=== PATIENT | female | born 1980 ===

== ENCOUNTER 2022-12-19 17:21 | Emergency (ER) | payer OTHER, SELFPAY ==
--- NOTE | ~2022-12-19 | XR_ITS ---
EXAMINATION: XR CHEST CLINICAL INFORMATION: Shortness of breath COMPARISON: None available. TECHNIQUE: 2 views of the chest were obtained. FINDINGS: No significant abnormality is noted involving the heart, lungs, mediastinum, bony thorax or soft tissues. Old left rib fractures. XR/XR chest 2V IMPRESSION: No evidence for acute disease in the chest.
[2022-12-19 17:48] VITALS: BP 139/84; PULSE 105; RESP 18; TEMP 36.7; O2SAT 93; BMI 24.2
--- NOTE | 2022-12-19 17:48 | ED.ASTHMA ---
HPI - Asthma General Chief Complaint: Asthma Stated Complaint: asthma Time Seen by Provider: 12/19/22 20:52 Source: patient Mode of arrival: ambulatory Limitations: no limitations History of Present Illness HPI Narrative: Patient is a 42-year-old female who presents emergency department reporting that she has been having an asthma attack. She reports exacerbation of her symptoms over the past 5 days. She states that she has been walking in the heat to bring her son to school walking uphill which is been intolerant for her. She expresses shortness of breath, tightness in her chest and a productive cough. She has been using her albuterol inhaler nebulized lower below minimal improvement. She has been feeling overall fatigued in with a lack of appetite. She reports sick contact to a friend who tested positive for influenza. She denies fevers, nausea, vomiting, abdominal pain, genitourinary symptoms. Related Data Previous Rx's Medication Instructions Recorded azithromycin 250 mg tablet See Rx Instructions PO .COMPLEX #6 12/19/22 tabs prednisone 20 mg tablet 40 mg PO DAILY 5 days #10 tabs 12/19/22 Allergies Allergy/AdvReac Type Severity Reaction Status Date / Time No Known Allergies Allergy Verified 12/19/22 17:47 [No Known Allergies*] Review of Systems Review of Systems: Constitutional : No Fever, No Chills ENT/Mouth : No Hoarseness, No sore throat, No Rhinorrhea Eyes: No Redness, No Discharge, No Vision Changes Cardiovascular : No Chest Pain, positive SOB, positive Dyspnea on Exertion, No Edema Respiratory : positive Cough, No Sputum, positive Wheezing, Gastrointestinal : No Nausea, No Vomiting, No Diarrhea, No abdominal Pain Genitourinary : No Dysuria, No Hematuria Musculoskeletal : No joint pain, No Myalgias Skin : No rash Neuro : No Weakness, No Numbness, No Headache Psych : No anxiety, depression Heme/Lymph: No Bruising, No Bleeding Endocrine : No Polyuria, No Polydipsia Yes all other systems are reviewed and are negative [facility] Past Medical History Attestation statement: The following information was validated with the patient. Source: old records reviewed Social History Social History Smoked in Last 30 Days: No Use of substances other than those prescribed or required for medical reasons: No Advance Directives: No Advance Directives Information Provided: No Physical Exam Vital Signs: Vital Signs: Last Vital Signs Temp 98.1 F 12/19/22 17:48 Pulse 105 H 12/19/22 17:48 Resp 18 12/19/22 22:00 BP 139/84 12/19/22 17:48 Pulse Ox 93 12/19/22 17:48 O2 Del Method Room Air 12/19/22 17:48 BMI result Body Mass Index 24.2 Appearance: Alert.?Oriented to person, place and time. No acute distress.?Normal affect. Eyes: Pupils equal, round and reactive to light.? ENT: Pharynx normal.?? Neck: Normal inspection.? Neck supple.?? CVS: Heart sounds normal. Normal heart rate and rhythm.? Pulses normal.?? Respiratory: No respiratory distress.? Lung sounds with rhonchi bilaterally, mild expiratory wheezing in the upper lobes. no retractions. Speaking clear full sentences Abdomen: Soft and non-tender. Normoactive bowel sounds. Skin: Skin warm and dry.? Normal skin color.? Extremities: No lower extremity edema.? No calf ttp? Neuro: Moves all extremities spontaneously. Sensation intact bilaterally. No focal neuro deficits. Ambulates with normal steady gait. Course Course Course Narrative: This is an RME: Additional HPI, ROS, PE not included below will be deferred to primary provider. This is a [id number]-female, with a history of asthma, presenting to the ER with complaints of shortness of breath, chest tightness, productive cough with green/brown colored sputum. No fevers. +diarrhea, no appetitie, feeling weak. Using nebulizer and inhaler, used nebulizer 3x today. Plan: Viral swabs, labs, CXR Medical Decision Making Medical Decision Making MDM Narrative: Patient is a 42-year-old female past medical history of asthma who presents emergency department for evaluation of shortness of breath concern for asthma exacerbation. She has had a recent ill contact, although her testing obtained prior to my evaluation for influenza RSV and COVID-19 while negative. Her chest x-ray does not show any evidence of pneumonia, or pneumothorax. She has had minimal relief with her albuterol inhaler prescribed by her primary care provider. She is in no apparent respiratory distress. She declines to have serum labs drawn which were ordered by RMA provider. She is requesting medication management for exacerbation of her asthma. I have a low suspicion for ACS, I did discuss with patient potential for pulmonary embolism as she is mildly tachycardic, with low normal room air O2 saturation, she has no additional risk factors; personal history of malignancy/DVT/PE, coagulation disorders, use of OCP, recent lower extremity redness/swelling/pain, recent surgery or prolonged immobilization. Discussed plan of care for discharge, patient was offered to receive 1st dose of steroids in the emergency department however she declines, prescription was sent to the pharmacy for prednisone as well as azithromycin. We discussed worrisome signs and symptoms that would warrant re-evaluation in the emergency department, advised outpatient follow-up with her primary care provider within 1-3 days. Differential Diagnosis Differential Diagnoses: The differential diagnosis associated with the presentation includes (As noted above) Admission/Observation Consideration of admission/observation: Escalation of care including admission/observation considered (I considered admission for shortness of breath, see narrative above for further detail) Lab Data MDM Lab Attestation statement: I reviewed the patient's lab results. Labs: Lab Results 12/19/22 Range/Units 19:36 Influenza Type A (PCR) NEGATIVE (Negative) Influenza Type B (PCR) NEGATIVE (Negative) RSV RNA Qual (PCR) NEGATIVE (Negative) SARS-CoV-2 RNA (RT-PCR) NEGATIVE (Negative) Independent Interpretation I performed an independent interpretation of an: Plain X-Ray (I personally interpreted chest x-ray and agree with radiologist impression, no evidence of pneumothorax or pneumonia) Radiology Impression Discussion of test interpretation with radiology: I have reviewed the radiologist's reading. Radiologist Impression: XR/XR chest 2V IMPRESSION: No evidence for acute disease in the chest. Tests considered The following testing was considered but not selected: See narrative above for further detail Prescription Management I considered prescription management with: Antibiotic Discharge Plan Discharge Clinical Impression: Asthma with acute exacerbation Patient Disposition: Home, Self-Care Instructions: Asthma (ED) Prescriptions: New prednisone 20 mg tablet 40 mg PO DAILY 5 Days Qty: 10 0RF azithromycin 250 mg tablet See Rx Instructions .ROUTE .COMPLEX Qty: 6 0RF Rx Instructions: For 250 mg dose pack: take 500 mg today (day 1), then 250 mg for 4 days (days 2-5) Referrals: Physician,Unknown J [Primary Care Provider] - Stand Alone Forms: Work/School Release Interventions: ED Discharge Assessment Last Done: 12/19/22 22:04 Discharge Date/Time: 12/19/22 22:04
--- NOTE | 2022-12-19 19:36 | MHC.EDTECH ---
PT REFUSED BLOOD WORK ,DID ALLOW FOR SWAB TO BE TAKEN ,PIT PROVIDER AND PUTTY WORKER AWARE .
--- NOTE | 2022-12-19 20:30 | MHC.EDTECH ---
Patient refused blood draw, stating she only wanted a swab and to be treated for her asthma. Was very upset to be sent back to waiting room after swab was collected, patient was told about the process of drawing and obtaining specimens while she waited.
[2022-12-19 20:36] LABS: Influenza A PCR NEGATIVE (Negative); Influenza B PCR NEGATIVE (Negative); Resp Syncy Virus RNA Qual PCR NEGATIVE (Negative); SARS COV2 PCR INHOUSE NEGATIVE (Negative)
--- OUTSIDE RECORDS SUMMARY | 2022-12-19 20:54 | XMS_ITS | Continuity of Care Document ---
Author Name Unknown Organization [facility] Address [address] [place] [phone]- Care Team Providers Care Garage Attendant Name Role Phone Passer Deepika ORELLANA [place] Care Phys[place] [facility] [place] - 07/22/[address] [address]- Attending Physician: Not on Staff, Attending MD Allergies, Adverse Reactions, Alerts No Known Allergies Immunizations Given and Recorded Vaccine Date Status Refusal Reason tetanus/diphtheria/pertussis, acel(Tdap) 05/23/21 Given tetanus/diphtheria/pertussis, acel(Tdap) 12/28/14 Given Medications aspirin 81 mg oral delayed release tablet See Instructions, 2 tablet By Mouth Daily at bedtime, # 60 tablet, Refills 8, Tot. Refills 8, Maintenance, 02/07/21 10:30:00 EDT, Instructions Replace Required Details, Route to Pharmacy Electronically, [facility]/pharmacy #[id number], Partial fill upon patient re... Start Date: 02/07/21 Status: Ordered CVS DOXYLAMINE 25 MG TAB CVS DOXYLAMINE 25 MG TAB, 1, tablet, By Mouth, Daily at bedtime, # 30 tablet, 1 Refills, 145, cm, 05/26/21 11:48:00 EST, Height Start Date: 06/19/21 Status: Ordered Ensure Pluse Ensure Pluse, See Instructions, # 90 each, Refills 1, Tot. Refills 1, Maintenance, Three per day., 12/31/17 11:43:35 EDT, weight loss, Compound Start Date: 12/31/17 Status: Ordered famotidine 10 mg oral tablet 1 tablet = 10 mg, By Mouth, 2 times a day, PRN Dyspepsia, # 60 tablet, 1 Refills, Maintenance, 06/06/21 11:41:00 EST, Tablet, [facility]/pharmacy #[id number], Partial fill upon patient request if the prescriptionis for a schedule II opioid drug., 145, cm, ... Start Date: 06/06/21 Status: Ordered Multivitamins with Folic Acid 1 mg oral tablet 1 tablet, By Mouth, Daily, # 90 tablet, 2 Refills, Maintenance, 01/02/21 11:05:00 EDT, [facility]/pharmacy#[id number], Partial fill upon patient request if the prescription is for a schedule II opioid drug., 1 tablet By Mouth Daily, 145, cm, 01/02/21 10:26:00 EDT... Start Date: 01/02/21 Status: Ordered ProAir HFA 90 mcg/inh inhalation aerosol with adapter 1-2 PUFFS, Inhalation, Every 6 hours, PRN, # 8.5 each, Refills 0, Route to Pharmacy Electronically,[id number], [id number], 145, cm, 05/26/21 11:48:00 EST, Height Start Date: 06/19/21 Status: Ordered Unisom 25 mg oral tablet See Instructions, take 1 tablet by mouth at bedtime, # 30 tablet, 1 Refills, Maintenance, 04/19/21 12:03:00 EST, [facility]/pharmacy #[id number], Partial fill upon patient request if the prescription is for a schedule II opioid drug., 145, cm, 03/28/21 12:21:00 ES... Start Date: 04/19/21 Status: Ordered Problem List Condition Effective Dates Status Health Status Inform ant Asthma(Confirmed) Active Chronic headaches(Confirmed) Active GERD (gastroesophageal reflu x disease)(Confirmed) Active History of varicella vaccination(Confirmed) Active Obese class I(Confirmed) Active Post traumatic stress disord er (PTSD)(Confirmed) Active Social History Social History Type Response Smoking Status Former smoker, quit more than 30 days ago entered on: 04/11/20 Sex Female
--- OUTSIDE RECORDS SUMMARY | 2022-12-19 20:54 | XMS_ITS | Continuity of Care Document ---
Author Name Unknown Organization [facility] Address [address] [place] [address]- Care Team Providers Care Water And Gas Helper Name Role Phone Passer Deepika ORELLANA Primary Care Phys[place] [facility] [place] - 12/01/[address] [address]- Attending Physician: Not on Staff, Attending MD Referring Physician: Roseline Barker MD Allergies, Adverse Reactions, Alerts No Known Allergies Immunizations Given and Recorded Vaccine Date Status Refusal Reason tetanus/diphtheria/pertussis, acel(Tdap) 05/23/21 Given tetanus/diphtheria/pertussis, acel(Tdap) 12/28/14 Given Medications acetaminophen 325 mg oral tablet 650 mg, By Mouth, Every 4 hours, PRN, (1-3), may give 325mg per patient preference and re-dose [id number] within 4 hours, if needed. Patient should only receive a total of 650mg of Acetaminophen every 4 hours., # 50 tablet, Refills 0, Tot. Refills 0... Start Date: 08/11/21 Status: Ordered [facility] DOXYLAMINE 25 MG TAB [...] loss, Compound Start Date: 12/31/17 Status: Ordered Heartburn Relief 10 mg oral tablet 1 tablet, By Mouth, 2 times a day, PRN NEEDED FOR DYSPEPSIA, # 60 tablet, 0 Refills, [id number], 145, cm, 08/11/21 8:46:00 EDT, Height, 69.5, kg, 08/09/21 8:30:00 EDT, Dry Weight Start Date: 08/22/21 Status: Ordered ibuprofen 800 mg oral tablet 800 mg, 1, tablet, By Mouth, Every 8 hours, PRN, (4-6), may give 400mg per patient preference and re-dose with 400mg within 8 hours if needed. Patient should only receive a total of 800mg of Ibuprofen every 8 hours., # 50 tablet, Refills 0, Tot. Ref... Start Date: 08/11/21 Status: Ordered ondansetron 4 mg oral tablet, disintegrating = 4 mg, By Mouth, Every 6 hours, PRN Nausea & Vomiting, # 20 tablet, 0 Refills, Maintenance, 08/11/21 5:13:00 EDT, Tablet, [facility]/pharmacy #[id number], Partial fill upon patient request if the prescription is for a schedule II opioid drug., 145, cm, 08/10/21 1... Start Date: 08/11/21 Status: Ordered Multivitamins with Folic Acid 1 mg oral tablet 1 tablet, By Mouth, Daily, # 90 tablet, 2 Refills, Maintenance, 01/02/21 11:05:00 EDT, [facility]/pharmacy#[id number], Partial fill upon patient request if the prescription is for a schedule II opioid drug., 1 tablet By Mouth Daily, 145, cm, 01/02/21 10:26:00 EDT... Start Date: 01/02/21 Status: Ordered ProAir HFA 90 mcg/inh inhalation aerosol with adapter 1-2 PUFFS, Inhalation, Every 6 hours, PRN, # 8.5 each, Refills 0, Route to Pharmacy Electronically,[id number], [id number], 145, cm, 05/26/21 11:48:00 EST, Height Start Date: 06/19/21 Status: Ordered Unisom 25 mg oral tablet See Instructions, take 1 tablet by mouth at bedtime, # 30 tablet, 1 Refills, Maintenance, 12/29/21 12:03:00 JAUN, [facility]/pharmacy #[id number], Partial fill upon patient request if the [...]
--- OUTSIDE RECORDS SUMMARY | 2022-12-19 20:54 | XMS_ITS | Continuity of Care Document ---
Author Name Unknown Organization [facility] Address [address] [place] [phone]- Care Team Providers Care Glass Forming Crew Member Name Role Phone Passer Deepika ORELLANA Primary Care Phys[place] [facility] [place] 09/19/22 [facility] [address] [address]- Attending Physician: Sissy Loving Admitting Physician: AdmSissy edmondson Referring Physician: Admtr ArTeresa Allergies, Adverse Reactions, Alerts No Known Allergies Immunizations Given and Recorded Vaccine Date Status Refusal Reason tetanus/diphtheria/pertussis, acel(Tdap) 05/23/21 Given tetanus/diphtheria/pertussis, acel(Tdap) 12/28/14 Given Measles/Mumps/Rubella Virus Vaccine 03/27/17 Recor ded hepatitis B pediatric vaccine 03/27/17 Recorded Medications acetaminophen 325 mg oral tablet 650 mg, By Mouth, Every 4 hours, PRN, (1-3), may give 325mg per patient preference and re-dose [id number] within 4 hours, if needed. Patient should [...] loss, Compound Start Date: 12/31/17 Status: Ordered escitalopram 10 mg oral tablet 1 tablet = 10 mg, By Mouth, Daily, for anxiety and depression, # 30 tablet, 3 Refills, Maintenance,03/21/22 11:20:00 EST, Tablet, [facility]/pharmacy #[id number], Partial fill upon patient request if the prescription is for a schedule II opioid drug., 145, cm, 11... Start Date: 03/21/22 Status: Ordered Heartburn Relief 10 mg oral tablet 1 tablet, By Mouth, 2 times a day, PRN NEEDED FOR DYSPEPSIA, # 60 tablet, 0 Refills, [facility] STORE [id number], 145, cm, 08/11/21 8:46:00 EDT, Height, 69.5, kg, 08/09/21 8:30:00 EDT, Dry Weight Start Date: 08/22/21 Status: Ordered hydrOXYzine hydrochloride 25 mg oral tablet 1 tablet = 25 mg, By Mouth, Every 6 hours, PRN for anxiety, # 60 tablet, 2 Refills, Maintenance, 03/21/22 11:20:00 EST, Tablet, [facility]/pharmacy #[id number], Partial fill upon patient request if the prescription is for a schedule II opioid drug., 145, cm, 03/21... Start Date: 03/21/22 Status: Ordered ibuprofen 800 mg oral tablet 800 mg, 1, tablet, By Mouth, Every 8 hours, PRN, with food not to exceed 3200 mg/day, # 50 tablet, Refills 3, Tot. Refills 3, Maintenance, Headache, 03/21/22 11:19:00 EST, Route to Pharmacy Electronically, [facility]/pharmacy #[id number], Partial fill upon patien... Start Date: 03/21/22 Status: Ordered ondansetron 4 mg oral tablet, disintegrating = 4 mg, By Mouth, Every 6 hours, PRN Nausea & Vomiting, # 20 tablet, 0 Refills, Maintenance, 08/11/21 5:13:00 EDT, Tablet, [facility]/pharmacy #[id number], Partial fill upon patient request if the prescription is for a schedule II opioid drug., 145, cm, 08/10/21 1... Start Date: 08/11/21 Status: Ordered permethrin 1% topical lotion 1 application, Topically, Once, Apply to freshly washed, slightly dried hair x 10 minutes, then rinse. Repeat in 7 days, # 240 mL, 1 Refills, Soft Stop, 05/08/22 13:38:00 EST, Lotion, [facility]/pharmacy #[id number], Partial fill upon patient request if the prescr... Start Date: 05/08/22 Status: Ordered Multivitamins with Folic Acid 1 mg oral tablet 1 tablet, By Mouth, Daily, # 90 tablet, 2 Refills, Maintenance, 01/02/21 11:05:00 EDT, [facility]/pharmacy#[id number], Partial fill upon patient request if the prescription is for a schedule II opioid drug., 1 tablet By Mouth Daily, 145, cm, 01/02/21 10:26:00 EDT... Start Date: 01/02/21 Status: Ordered ProAir HFA 90 mcg/inh inhalation aerosol with adapter 1-2 PUFFS, Inhalation, Every 6 hours, PRN, # 8.5 each, Refills 0, Route to Pharmacy Electronically,[id number], [facility] STORE [id number], 145, cm, 05/26/21 11:48:00 EST, Height Start Date: 06/19/21 Status: Ordered Unisom 25 mg oral tablet See Instructions, take 1 tablet by mouth at bedtime, # 30 tablet, 1 Refills, Maintenance, 04/19/21 12:03:00 EST, [facility]/pharmacy #[id number], Partial fill upon patient request if the prescription is for a schedule II opioid drug., 145, cm, 03/28/21 12:21:00 ES... Start Date: 04/19/21 Status: Ordered Problem List Condition Confirmation Course Effective Dates Status Health St [facility] Informant Asthma Confirmed Active Chronic headaches Confirmed Active GERD (gastroesophageal reflux disease) Confirmed Active History of varicella vaccination Confirmed Active Anxiety with depression Confirmed Active Post traumatic stress disorder (PTSD) Confirmed Active Social History Social History Type Response Smoking Status Former smoker, quit more than 30 days ago entered on: 04/11/20 Sex Patient Care team information Care Team Personnel Name: Deepika Ngo Position: S PCO Associate Professional Member Role: PCP Address: Address: [address] [place] [address]- Care Team Related Persons Name: DENISE TINAJERO Address: [address] [place] [address] Name: JIM LEE Address: [id number] Address: [address] [place] [address] Name: JIM LEE Address: [address] [place] [address]
--- OUTSIDE RECORDS SUMMARY | 2022-12-19 20:54 | XMS_ITS | Continuity of Care Document ---
Author Name Unknown Organization [facility] Address [address] [place] [address]- Care Team Providers Care Business Education Instructor Name Role Phone Passer Deepika ORELLANA Primary Care Physician En[place] [facility] [place](s): 06/16/20 - 07/16/20 [facility] [address] [place] [address]- Attending Physician: AdmSissy edmondson Admitting Physician: Admtr, Ar8 Referring Physician: Admtr, Ar8 Allergies, Adverse Reactions, Alerts Substance Reaction Severity Status NKA Active Immunizations Given and Recorded Vaccine Date Status Refusal Reason tetanus/diphtheria/pertussis, acel(Tdap) 12/28/14 Given Medications albuterol 90 mcg/inh inhalation powder 1 puffs, Inhalation, Every 4 hours, PRN as needed, for asthma, # 1 each, 2 Refills, Maintenance, 05/31/20 11:25:00 EST, Powder, [facility]/pharmacy #[id number], Duplicate rx-Original rx sent 08/25/19. Remaining refills sent., 1 puffs Inhalation Every 4 hours,PRN:as... Start Date: 05/31/20 Status: Ordered Samantha 0.35 mg oral tablet 1 tablet = 0.35 mg, By Mouth, Daily, # 90 tablet, 11 Refills, Maintenance, 07/14/19 13:49:00 EDT, Tablet, [id number], 146.7, cm, 06/02/18 10:38:00 EST, Height Start Date: 07/14/19 Status: Ordered Ensure Pluse Ensure Pluse, See Instructions, # 90 each, Refills 1, Tot. Refills 1, Maintenance, Three per day., 12/31/17 11:43:35 EDT, weight loss, Compound Start Date: 12/31/17 Status: Ordered ibuprofen 800 mg oral tablet 1, tablet, By Mouth, 3 times a day, INSTR:FOR TOE PAIN AND HEADACHE, # 90 tablet, Refills 3, Tot. Refills 3, Maintenance, 08/25/19 10:32:00 EDT, Route to Pharmacy Electronically, [facility]/pharmacy #[id number], 146.7, cm, 06/02/18 10:38:00 EST, Height Start Date: 08/25/19 Status: Ordered mirtazapine 30 mg oral tablet 1 tablet = 30 mg, By Mouth, Daily at bedtime, for sleep, # 30 tablet, 11 Refills, Maintenance, 04/11/20 13:34:00 EST, Tablet, [facility]/pharmacy #[id number], 146.7, cm, 04/11/20 12:42:00 EST, Height Start Date: 04/11/20 Status: Ordered Protonix 20 mg oral delayed release tablet 1 tablet = 20 mg, By Mouth, Daily at bedtime, for acid, # 30 tablet, 6 Refills, Maintenance, 01/20/20 9:05:00 EDT, CR Tablet, 146.7, cm, 06/02/18 10:38:00 EST, Height Start Date: 01/20/20 Status: Ordered Problem List Condition Effective Dates Status Health Status Inform ant Chronic headaches(Confirmed) Active Hyperemesis(Confirmed) 1 Active 1increased wgt loss since +pt Social History Social History Type Response Smoking Status Former smoker, quit more than 30 days ago entered on: 04/11/20 Sex
--- OUTSIDE RECORDS SUMMARY | 2022-12-19 20:54 | XMS_ITS | Continuity of Care Document ---
Author Name Unknown Organization [facility] Address [address] [facility], [address], [address] [place] [address]- Care Team Providers Care Digital Photo Printer Name Role Phone Deepika Ngo Primary Care Physician Encounter [facility] [place] Date(s): 08/31/19 - 09/07/19 [facility] [address], [address], [address] [place] [id number]- [facility] Attending Physician: Floyd Drake NP Referring Physician: Deepika Ngo Allergies, Adverse Reactions, Alerts Substance Reaction Severity Status NKA Active Immunizations Given and Recorded Vaccine Date Status Refusal Reason tetanus/diphtheria/pertussis, acel(Tdap) 12/28/14 Given Medications albuterol 90 mcg/inh inhalation powder 1 puffs, Inhalation, Every 4 hours, PRN as needed, for asthma, # 1 each, 11 Refills, Maintenance, 08/25/19 10:32:00 EDT, Powder, [id number], 1 puffs Inhalation Every 4 hours,PRN:as needed,Instr:for asthma, 146.7, cm, 06/02/18 10:38:00 EST, Height Start Date: 08/25/19 Status: Ordered Samantha 0.35 mg oral tablet [...] 08/25/19 10:32:00 EDT, Route to Pharmacy Electronically, [facility]/pharmacy #[id number], 146.7, cm, 06/02/18 10:38:00 EST, Height Start Date: 08/25/19 Status: Ordered Protonix 20 mg oral delayed release tablet 1 tablet = 20 mg, By Mouth, Daily at bedtime, for acid, # 30 tablet, 0 Refills, Maintenance, 08/25/19 10:32:00 EDT, CR Tablet, 146.7, cm, 06/02/18 10:38:00 EST, Height Start Date: 08/25/19 Status: Ordered Problem List Condition Effective Dates Status Health Status Inform ant Chronic headaches(Confirmed) Active Hyperemesis(Confirmed) 1 Active 1increased wgt loss since +pt Social History Social History Type Response Smoking Status Former smoker; Type: Cigarettes; Tobacco use times per day: 2-3 PER DAY; Started at age: 14; Stopped at age: 33; entered on: 12/31/17 Sex
--- OUTSIDE RECORDS SUMMARY | 2022-12-19 20:54 | XMS_ITS | Continuity of Care Document ---
Author Name Unknown Organization [facility] Address [address] [place] [address]- Care Team Providers Care Mental Health Consultant Name Role Phone Passer Deepika ORELLANA Primary Care Physician Encounter [facility] [place] Date(s): 08/25/19 - 09/24/19 [facility] [address] [place] [address]- [place] States Attending Physician: Admtr, [id number] Admitting Physician: [id number] Referring Physician: Admtr, Ar8 Allergies, Adverse Reactions, [...] 08/25/19 10:32:00 EDT, Route to Pharmacy Electronically, [facility]/pharmacy #[id number], 146.7, cm, 06/02/18 10:38:00 EST, Height Start Date: 08/25/19 Status: Ordered Protonix 20 mg oral delayed release tablet 1 tablet = 20 mg, By Mouth, Daily at bedtime, for acid, # 30 tablet, 2 Refills, Maintenance, 09/17/19 15:34:00 EDT, CR Tablet, 146.7, cm, 06/02/18 10:38:00 EST, Height Start Date: 09/17/19 Status: Ordered Problem List Condition Effective Dates Status Health Status Inform ant Chronic headaches(Confirmed) Active Hyperemesis(Confirmed) 1 Active 1increased wgt loss since +pt Social History Social History Type Response Smoking Status Former smoker; Type: Cigarettes; Tobacco use times per day: 2-3 PER DAY; Started at age: 14; Stopped at age: 33; entered on: 12/31/17 Sex
--- OUTSIDE RECORDS SUMMARY | 2022-12-19 20:54 | XMS_ITS | Continuity of Care Document ---
Author Name Unknown Organization [facility] Address [address] [place] [address]- Care Team Providers Care Operations Controller Name Role Phone Passer Deepika ORELLANA Primary Care Physician Encounter [facility] [place] Date(s): 02/09/21 - 03/11/[address] [address] Allergies, Adverse Reactions, Alerts Substance Reaction Severity Status NKA Active Immunizations Given and Recorded Vaccine Date Status Refusal Reason tetanus/diphtheria/pertussis, acel(Tdap) 12/28/14 Given Medications albuterol 90 mcg/inh inhalation powder 1 puffs, Inhalation, Every 4 hours, PRN as needed, for asthma, # 1 each, 2 Refills, Maintenance, 05/31/20 11:25:00 EST, Powder, [facility]/pharmacy #[id number], Duplicate rx-Original rx sent 08/25/19. Remaining refills sent., 1 puffs Inhalation Every 4 hours,PRN:as... Start Date: 05/31/20 Status: Ordered aspirin 81 mg oral delayed release tablet See Instructions, 2 tablet By Mouth Daily at bedtime, # 60 tablet, Refills 8, Tot. Refills 8, Maintenance, 02/07/21 10:30:00 EDT, Instructions Replace Required Details, Route to Pharmacy Electronically, [id number], Partial fill upon patient re... Start Date: 02/07/21 Status: Ordered Ensure Pluse Ensure Pluse, See Instructions, # 90 each, Refills 1, Tot. Refills 1, Maintenance, Three per day., 12/31/17 11:43:35 EDT, weight loss, Compound Start Date: 12/31/17 Status: Ordered Multivitamins with Folic Acid 1 mg oral tablet 1 tablet, By Mouth, Daily, # 90 tablet, 2 Refills, Maintenance, 01/02/21 11:05:00 EDT, [facility]/pharmacy#[id number], Partial fill upon patient request if the prescription is for a schedule II opioid drug., 1 tablet By Mouth Daily, 145, cm, 01/02/21 10:26:00 EDT... Start Date: 01/02/21 Status: Ordered Unisom 25 mg oral tablet 1 tablet = 25 mg, By Mouth, Daily at bedtime, PRN Sleep, 15 to 30 minutes before bed May take 1/2 tab if whole tab causes morning drowiness, # 30 tablet, 1 Refills, Acute 04/12/21 13:32:00 EST, 01/10/21 13:32:00 EDT, [facility]/pharmacy #[id number], Partial fill... Start Date: 01/10/21 Stop Date: 04/12/21 Status: Ordered Problem List Condition Effective Dates Status Health Status Inform ant Asthma(Confirmed) Active Chronic headaches(Confirmed) Active History of varicella vaccination(Confirmed) Active Post traumatic stress disord er (PTSD)(Confirmed) Active Social History Social History Type Response Smoking Status Former smoker, quit more than 30 days ago entered on: 04/11/20 Sex
--- OUTSIDE RECORDS SUMMARY | 2022-12-19 20:54 | XMS_ITS | Continuity of Care Document ---
Author Name Unknown Organization [facility] Address [address] [place] [address]- Care Team Providers Care I O Psychologist Name Role Phone Passer Deepika ORELLANA Primary Care Physician Encounter [facility] [place] Date(s): 04/27/22 - 05/27/22 [facility]/[address] [address]- [place] Allergies, Adverse Reactions, Alerts No Known Allergies Immunizations Given and Recorded Vaccine Date Status Refusal Reason tetanus/diphtheria/pertussis, acel(Tdap) 05/23/21 Given tetanus/diphtheria/pertussis, acel(Tdap) 12/28/14 Given Measles/Mumps/Rubella Virus Vaccine 03/27/17 Recor ded hepatitis B pediatric vaccine 03/27/17 Recorded Medications acetaminophen 325 mg oral tablet 650 mg, By Mouth, Every 4 hours, PRN, (1-3), may give 325mg per patient preference and re-dose [id number] within 4 hours, if needed. Patient should [...] tablet, 3 Refills, Maintenance,03/21/22 11:20:00 EST, Tablet, [facility]/pharmacy #[id number], Partial fill upon patient request if the prescription is for a schedule II opioid drug., 145, cm, 11... Start Date: 03/21/22 Status: Ordered Heartburn Relief 10 mg oral tablet 1 tablet, By Mouth, 2 times a day, PRN NEEDED FOR DYSPEPSIA, # 60 tablet, 0 Refills, [facility] STORE [id number], 145, cm, 08/11/21 8:46:00 EDT, Height, 69.5, kg, 08/09/21 8:30:00 EDT, Dry Weight Start Date: 08/22/21 Status: Ordered hydrOXYzine hydrochloride 25 mg oral tablet 1 tablet = 25 mg, By Mouth, Every 6 hours, PRN for anxiety, # 60 tablet, 2 Refills, Maintenance, 03/21/22 11:20:00 EST, Tablet, [facility]/pharmacy #[id number], Partial fill upon patient request [...] 03/21/22 11:19:00 EST, Route to Pharmacy Electronically, [facility]/pharmacy #[id number], Partial fill upon patien... Start Date: 03/21/22 Status: Ordered ondansetron 4 mg oral tablet, disintegrating = 4 mg, By Mouth, Every 6 hours, PRN Nausea & Vomiting, # 20 tablet, 0 Refills, Maintenance, 08/11/21 5:13:00 EDT, Tablet, [id number], Partial fill upon patient request if the prescription is for a schedule II opioid drug., 145, cm, 08/10/21 1... Start Date: 08/11/21 Status: Ordered permethrin 1% topical lotion 1 application, Topically, Once, Apply to freshly washed, slightly dried hair x 10 minutes, then rinse. Repeat in 7 days, # 240 mL, 1 Refills, Soft Stop, 05/08/22 13:38:00 EST, Lotion, [id number], Partial fill upon patient request if the prescr... Start Date: 05/08/22 Status: Ordered Multivitamins with Folic Acid 1 mg oral tablet 1 tablet, By Mouth, Daily, # 90 tablet, 2 Refills, Maintenance, 01/02/21 11:05:00 EDT, [id number], Partial fill upon patient request if the prescription is for a schedule II opioid drug., 1 tablet By Mouth Daily, 145, cm, 01/02/21 10:26:00 EDT... Start Date: 01/02/21 Status: Ordered ProAir HFA 90 mcg/inh inhalation aerosol with adapter 1-2 PUFFS, Inhalation, Every 6 hours, PRN, # 8.5 each, Refills 0, Route to Pharmacy Electronically,[id number], [facility] STORE [id number], 145, cm, 05/26/21 11:48:00 EST, Height Start Date: 06/19/21 Status: Ordered Unisom 25 mg oral tablet See Instructions, take 1 tablet by mouth at bedtime, # 30 tablet, 1 Refills, Maintenance, 04/19/21 12:03:00 EST, [facility]/pharmacy #[id number], Partial fill upon patient request [...] Associate Professional Member Role: PCP Address: Address: [address] [place] [address]- Care Team Related Persons Name: DENISE TINAJERO Address: home [address] [place] [address] Name: JIM LEE Address: [address] [address] Name: LEEJIM Address: [id number] Address: [place] [id number]
--- OUTSIDE RECORDS SUMMARY | 2022-12-19 20:54 | XMS_ITS | Continuity of Care Document ---
Author Name Unknown Organization [facility] Address [address] [place] [address]- Care Team Providers Care Airfield Manager Name Role Phone Passer Deepika ORELLANA Primary Care Physician Encounter [facility] Date(s): 10/13/20 - 11/12/20 [facility] [address] [address]- Attending Physician: Sissy Loving Admitting Physician: AdmtrSissy Referring Physician: Admtr, Alec8 Allergies, Adverse Reactions, Alerts Substance Reaction Severity Status NKA Active Immunizations Given and Recorded Vaccine Date Status Refusal Reason tetanus/diphtheria/pertussis, acel(Tdap) 12/28/14 Given Medications albuterol 90 mcg/inh inhalation powder 1 puffs, Inhalation, Every 4 hours, PRN as needed, for asthma, # 1 each, 2 Refills, Maintenance, 05/31/20 11:25:00 EST, Powder, [facility]/pharmacy #[id number], Duplicate rx-Original rx sent 08/25/19. [...] 11:43:35 EDT, weight loss, Compound Start Date: 9/11/18 Status: Ordered ibuprofen 800 mg oral tablet 1, tablet, By Mouth, 3 times a day, INSTR:FOR TOE PAIN AND HEADACHE, # 90 tablet, Refills 3, Tot. Refills 3, Maintenance, 08/25/19 10:32:00 EDT, Route to Pharmacy Electronically, [facility]/pharmacy #[id number], 146.7, cm, 06/02/18 10:38:00 EST, Height Start Date: 08/25/19 Status: Ordered mirtazapine 30 mg oral tablet 1 tablet = 30 mg, By Mouth, Daily at bedtime, for sleep, # 30 tablet, 11 Refills, Maintenance, 04/11/20 13:34:00 EST, Tablet, [facility]/pharmacy #[id number], 146.7, cm, 04/11/20 12:42:00 EST, Height [...]
--- OUTSIDE RECORDS SUMMARY | 2022-12-19 20:54 | XMS_ITS | Continuity of Care Document ---
Author Name Unknown Organization [facility] Address [address] [place] [address]- Care Team Providers Care Fleet Administrative Assistant Name Role Phone Passer Deepika ORELLANA Primary Care Physician Encounter [facility] [place] Date(s): 01/02/21 - 03/01/[address] [address] Attending Physician: Not on Staff, Attending MD Referring Physician: Not on Staff, Referring MD Allergies, Adverse Reactions, Alerts Substance Reaction Severity Status NKA Active Immunizations Given and Recorded Vaccine Date Status Refusal Reason tetanus/diphtheria/pertussis, acel(Tdap) 12/28/14 Given Medications albuterol 90 mcg/inh inhalation powder 1 puffs, Inhalation, Every 4 hours, PRN as needed, for asthma, # 1 each, 2 Refills, Maintenance, 05/31/20 11:25:00 EST, Powder, [facility]/pharmacy #[id number], Duplicate rx-Original rx sent 08/25/19. Remaining refills sent., 1 puffs Inhalation Every 4 hours,PRN:as... Start Date: 05/31/20 Status: Ordered aspirin 81 mg oral delayed release tablet See Instructions, 2 tablet By Mouth Daily at bedtime, # 60 tablet, Refills 8, Tot. Refills 8, Maintenance, 02/07/21 10:30:00 EDT, Instructions Replace Required Details, Route to Pharmacy Electronically, [facility]/pharmacy #[id number], Partial fill upon patient re... Start Date: 02/07/21 Status: Ordered Samantha 0.35 mg oral tablet 1 tablet = 0.35 mg, By Mouth, Daily, # 90 tablet, 11 Refills, Maintenance, 07/14/19 13:49:00 EDT, Tablet, [facility]/pharmacy #[id number], 146.7, cm, 06/02/18 10:38:00 EST, Height [...] 08/25/19 10:32:00 EDT, [facility] 146.7, cm, 06/02/18 10:38:00 EST, Height Start Date: 08/25/19 Status: Ordered mirtazapine 30 mg oral tablet 1 tablet = 30 mg, By Mouth, Daily at bedtime, for sleep, # 30 tablet, 11 Refills, Maintenance, 04/11/20 13:34:00 EST, Tablet, [facility]/pharmacy #207, 146.7, cm, 04/11/20 12:42:00 EST, Height Start Date: 04/11/20 Status: Ordered Multivitamins with Folic Acid 1 mg oral tablet 1 tablet, By Mouth, Daily, # 90 tablet, 2 Refills, Maintenance, 01/02/21 11:05:00 EDT, [facility]/pharmacy#207, Partial fill upon patient request if the prescription is for a schedule II opioid drug., 1 tablet By Mouth Daily, 145, cm, 01/02/21 10:26:00 EDT... Start Date: 01/02/21 Status: Ordered Protonix 20 mg oral delayed release tablet 1 tablet = 20 mg, By Mouth, Daily at bedtime, for acid, # 30 tablet, 6 Refills, Maintenance, 01/20/20 9:05:00 EDT, CR Tablet, 146.7, cm, 06/02/18 10:38:00 EST, Height Start Date: 01/20/20 Status: Ordered Unisom 25 mg oral tablet 1 tablet = 25 mg, By Mouth, Daily at bedtime, PRN Sleep, 15 to 30 minutes before bed May take 1/2 tab if whole tab causes morning drowiness, # 30 tablet, 1 Refills, Acute 04/12/21 13:32:00 EST, 01/10/21 13:32:00 EDT, [facility]/pharmacy #[id number], Partial fill... Start Date: 01/10/21 Stop Date: [...]
--- OUTSIDE RECORDS SUMMARY | 2022-12-19 20:54 | XMS_ITS | Continuity of Care Document ---
Author Name Unknown Organization [facility] Address [address] [place] [address]- Care Team Providers Care Director Of Manufacturing Name Role Phone Deepika Ngo Primary Care Physician [place] [facility] [place]14[place] - 12/22/21 [facility]/[address] [address]- Attending Physician: Deepika Ngo Admitting Physician: Deepika Ngo Allergies, Adverse Reactions, Alerts No Known Allergies Immunizations Given and Recorded Vaccine Date Status Refusal Reason tetanus/diphtheria/pertussis, acel(Tdap) 05/23/21 Given tetanus/diphtheria/pertussis, acel(Tdap) 12/28/14 Given Medications acetaminophen 325 mg oral tablet 650 mg, By Mouth, Every 4 hours, PRN, (1-3), may give 325mg per patient preference and re-dose [id number] within 4 hours, if needed. Patient should [...] # 60 tablet, 0 Refills, [id number], 145, cm, 08/11/21 8:46:00 EDT, Height, 69.5, [...] 0 Refills, Maintenance, 08/11/21 5:13:00 EDT, Tablet, [facility]/pharmacy #[id number], Partial fill upon patient request if the prescription is for a schedule II opioid drug., 145, cm, 08/10/21 1... Start Date: 08/11/21 Status: Ordered Multivitamins with Folic Acid 1 mg oral tablet 1 tablet, By Mouth, Daily, # 90 tablet, 2 Refills, Maintenance, 01/02/21 11:05:00 EDT, [facility]/pharmacy#[id number], Partial fill upon patient request if the prescription is for a schedule II opioid drug., 1 tablet By Mouth Daily, 145, cm, 01/02/21 10:26:00 EDT... Start Date: 01/02/21 Status: Ordered ProAir HFA 90 mcg/inh inhalation aerosol with adapter 1-2 PUFFS, Inhalation, Every 6 hours, PRN, # 8.5 each, Refills 0, Route to Pharmacy Electronically,[id number], [id number], 145, cm, 05/26/21 11:48:00 EST, Height Start Date: 06/19/21 Status: Ordered Unisom 25 mg oral tablet See Instructions, take 1 tablet by mouth at bedtime, # 30 tablet, 1 Refills, Maintenance, 04/19/21 12:03:00 EST, [facility]/pharmacy #[id number], Partial fill upon patient request if the [...] 30 days ago entered on: 04/11/20 Sex Care Team Personnel Name: Deepika Ngo Address: [address] [place] [address]
--- OUTSIDE RECORDS SUMMARY | 2022-12-19 20:54 | XMS_ITS | Continuity of Care Document ---
Author Name Unknown Organization [facility] Address [address] [place] [address]- Care Team Providers Care Supply Coordinator Name Role Phone Passer Deepika ORELLANA Primary Care Physician [place] [facility] [place](s[place] 10/03/21 - 11/02/21 [facility] [address] [place] [address]- Attending Physician: Sissy Loving Admitting Physician: Sissy Loving Referring Physician: AdmtrSissy Allergies, Adverse Reactions, Alerts No Known Allergies Immunizations Given and Recorded Vaccine Date Status Refusal Reason tetanus/diphtheria/pertussis, acel(Tdap) 05/23/21 Given tetanus/diphtheria/pertussis, acel(Tdap) 12/28/14 Given Medications acetaminophen 325 mg oral tablet 650 mg, By Mouth, Every 4 hours, PRN, (1-3), may give 325mg per patient preference and re-dose [id number] within 4 hours, if needed. Patient should [...] # 60 tablet, 0 Refills, [id number], 145, cm, 08/11/21 8:46:00 EDT, Height, 69.5, [...] 0 Refills, Maintenance, 08/11/21 5:13:00 EDT, Tablet, [facility]/pharmacy #[id number], Partial fill upon patient request if the prescription is for a schedule II opioid drug., 145, cm, 08/10/21 1... Start Date: 08/11/21 Status: Ordered Multivitamins with Folic Acid 1 mg oral tablet 1 tablet, By Mouth, Daily, # 90 tablet, 2 Refills, Maintenance, 01/02/21 11:05:00 EDT, [facility]/pharmacy#[id number], Partial fill upon patient request if the prescription is for a schedule II opioid drug., 1 tablet By Mouth Daily, 145, cm, 01/02/21 10:26:00 EDT... Start Date: 01/02/21 Status: Ordered ProAir HFA 90 mcg/inh inhalation aerosol with adapter 1-2 PUFFS, Inhalation, Every 6 hours, PRN, # 8.5 each, Refills 0, Route to Pharmacy Electronically,[id number], [facility], 145, cm, 05/26/21 11:48:00 EST, Height Start Date: 06/19/21 Status: Ordered Unisom 25 mg oral tablet See Instructions, take 1 tablet by mouth at bedtime, # 30 tablet, 1 Refills, Maintenance, 04/19/21 12:03:00 JAUN, [facility]/pharmacy #[id number], Partial fill upon patient request if the [...]
--- OUTSIDE RECORDS SUMMARY | 2022-12-19 20:54 | XMS_ITS | Continuity of Care Document ---
Author Name Unknown Organization [facility] Address [address] [place] [address]- Care Team Providers Care Patient Portal Representative Name Role Phone Passer Deepika ORELLANA Primary Care Physician Encounter [facility] [place] Date(s): 08/09/21 - 08/11/[address] [address]- Discharge Disposition: A-D/C Home Attending Physician: Zhao Jacobsen MD Admitting Physician: Zhao Jacobsen MD Referring Physician: Zhao Jacobsen MD Allergies, Adverse Reactions, Alerts No Known Allergies Immunizations Given and Recorded Vaccine Date Status Refusal Reason tetanus/diphtheria/pertussis, acel(Tdap) 05/23/21 Given tetanus/diphtheria/pertussis, acel(Tdap) 12/28/14 Given Medications acetaminophen 325 mg oral tablet 650 mg, By Mouth, Every 4 hours, PRN, (1-3), may give 325mg per patient preference and re-dose [id number] within 4 hours, if needed. Patient should only receive a total of 650mg of Acetaminophen every 4 hours., # 50 tablet, Refills 0, Tot. Refills 0... Start Date: 08/11/21 Status: Ordered Acetaminophen Tablet 650 mg, Tablet, By Mouth, Every 4 hours, PRN for Pain , Mild, (1-3), may give 325mg per patient preference and re-dose with 325mg within 4 hours, if needed. Patient should only receive a total of 650mg of Acetaminophen every 4 hours., Routine, 08/09... Start Date: 08/09/21 Stop Date: 08/11/21 Status: Discontinued [facility] DOXYLAMINE 25 MG TAB [facility] DOXYLAMINE [...] 1 Refills, Maintenance, 06/06/21 11:41:00 EST, Tablet, [facility]/pharmacy #[id number], Partial fill upon patient request if the prescriptionis for a schedule II opioid drug., 145, cm, ... Start Date: 06/06/21 Status: Ordered ibuprofen 800 mg oral tablet [...] 0 Refills, Maintenance, 08/11/21 5:13:00 EDT, Tablet, [facility]/pharmacy #[id number], Partial fill upon patient request if [...] 8.5 each, Refills 0, Route to Pharmacy Electronically,[id number], [id number], 145, cm, 05/26/21 11:48:00 EST, Height Start Date: 06/19/21 Status: Ordered Unisom 25 mg oral tablet See Instructions, take 1 tablet by mouth at bedtime, # 30 tablet, 1 Refills, Maintenance, 04/19/21 12:03:00 EST, [facility]/pharmacy #[id number], Partial fill upon patient request if the prescription is for a schedule II opioid drug., 145, cm, 03/28/21 12:21:00 ES... Start Date: 04/19/21 Status: Ordered Problem List Condition Effective Dates Status Health Status Inform ant Asthma(Confirmed) Active Chronic headaches(Confirmed) Active GERD (gastroesophageal reflu x disease)(Confirmed) Active History of varicella vaccination(Confirmed) Active Obese class I(Confirmed) Active Post traumatic stress disord er (PTSD)(Confirmed) Active Vital Signs Most recent to oldest [Reference Range]: 1 2 3 Height 145 cm (08/11/21 8:46 AM) 145 cm (08/10/21 4:41 PM) 145 cm (08/10/21 8:21 AM) Weight 69.5 kg (08/09/21 8:26 AM) 69.5 kg (08/09/21 2:29 AM) Oxygen Saturation [94-100 %] 100 % (08/10/21 5:30 AM) 99 % (08/10/21 12:45 AM) 97 % (08/09/21 8:00 PM) Pulse Rate [55-90 bpm] 102 bpm *H* (08/11/21 8:46 AM) 91 bpm *H* (08/11/21 12:00 AM) 99 bpm *H* (08/10/21 4:41 PM) Body Mass Index [18.5-24.99] 33.06 *>HHI* (08/09/21 8:26 AM) Blood Pressure [90-138/55-84 mm Hg] 148/91mm Hg *H* (08/11/21 8:46 AM) 138/93mm Hg (08/11/21 12:00 AM) 127/82mm Hg (08/10/21 4:41 PM) Respiratory Rate [16-30 br/min] 18 br/min (08/11/21 8:46 AM) 18 br/min (08/11/21 4:54 AM) 18 br/min (08/10/21 11:25 PM) Temperature [96.8-100.4 DegF] 97.4 DegF (08/11/21 8:46 AM) 97.9 DegF (08/11/21 12:00 AM) 98.3 DegF (08/10/21 4:41 PM) Mode of Delivery (Oxygen) Room air (08/10/21 5:30 AM) Room air (08/10/21 12:45 AM) Room air (08/09/21 8:00 PM) Blood pressure sites Arm, right (08/11/21 8:46 AM) Arm, right (08/10/21 4:41 PM) Arm, left (08/10/21 8:21 AM) Temperature Route Oral (08/11/21 8:46 AM) Oral (08/11/21 12:00 AM) Oral (08/10/21 4:41 PM) Dry Weight 69.5 kg (08/09/21 8:26 AM) Social History Social History Type Response Smoking Status Former smoker, quit more than 30 days ago entered on: 04/11/20 Sex Female
--- OUTSIDE RECORDS SUMMARY | 2022-12-19 20:54 | XMS_ITS | Continuity of Care Document ---
Author Name Unknown Organization [facility] Address [address] [place] [address]- Care Team Providers Care Account Relationship Manager Name Role Phone Passer Deepika ORELLANA Primary Care Physician Encounter [facility] [place] Date(s): 04/28/20 - 05/28/20 [facility] [address] [address]- Attending Physician: Sissy Loving Admitting Physician: AdmtrSissy [...] 08/25/19 10:32:00 EDT, Route to Pharmacy Electronically, [facility]/pharmacy #[id number], 146.7, cm, 06/02/18 10:38:00 EST, Height Start Date: 08/25/19 Status: Ordered mirtazapine 30 mg oral tablet 1 tablet = 30 mg, By Mouth, Daily at bedtime, for sleep, # 30 tablet, 11 Refills, Maintenance, 04/11/20 13:34:00 EST, Tablet, [facility]/pharmacy #[id number], 146.7, cm, 04/11/20 12:42:00 [...]
--- OUTSIDE RECORDS SUMMARY | 2022-12-19 20:54 | XMS_ITS | Continuity of Care Document ---
Author Name Unknown Organization [facility] Address [address] [place] [address]- Care Team Providers Care Arc Trimmer Name Role Phone Passer Deepika ORELLANA Primary Care Physician Encounter [facility] [place] Date(s): 03/15/21 - 04/14/[address] [address]- Allergies, Adverse Reactions, Alerts Substance Reaction Severity Status NKA Active Immunizations Given and Recorded Vaccine Date Status Refusal Reason tetanus/diphtheria/pertussis, acel(Tdap) 12/28/14 Given Medications albuterol 90 mcg/inh inhalation powder 1 puffs, Inhalation, Every 4 hours, PRN as needed, for asthma, # 1 each, 2 Refills, Maintenance, 05/31/20 11:25:00 EST, Powder, [facility]/pharmacy #[id number], Duplicate rx-Original rx sent 08/25/19. Remaining refills sent., 1 puffs Inhalation Every 4 hours,PRN:as... Start Date: 05/31/20 Status: Ordered aspirin 81 mg oral delayed release tablet See Instructions, 2 tablet By Mouth Daily at bedtime, # 60 tablet, Refills 8, Tot. Refills 8, Maintenance, 02/07/21 10:30:00 EDT, Instructions Replace Required Details, Route to Pharmacy Electronically, [facility]/pharmacy #[id number], Partial fill upon patient re... Start Date: 02/07/21 Status: Ordered Ensure Pluse Ensure Pluse, See Instructions, # 90 each, Refills 1, Tot. Refills 1, Maintenance, Three per day., 12/31/17 11:43:35 EDT, weight loss, Compound Start Date: 12/31/17 Status: Ordered Multivitamins with Folic Acid 1 mg oral tablet 1 tablet, By Mouth, Daily, # 90 tablet, 2 Refills, Maintenance, 01/02/21 11:05:00 EDT, [facility]/pharmacy#[id number], Partial fill upon patient request if the prescription is for a schedule II opioid drug., 1 tablet By Mouth Daily, 145, cm, 01/02/21 10:26:00 EDT... Start Date: 01/02/21 Status: Ordered Problem List Condition Effective Dates Status Health Status Inform ant Asthma(Confirmed) Active Chronic headaches(Confirmed) Active History of varicella vaccination(Confirmed) Active Post traumatic stress disord er (PTSD)(Confirmed) Active Social History Social History Type Response Smoking Status Former smoker, quit more than 30 days ago entered on: 04/11/20 Sex
--- OUTSIDE RECORDS SUMMARY | 2022-12-19 20:54 | XMS_ITS | Continuity of Care Document ---
Author Name Unknown Organization [facility] Address [address] [place] [address]- Care Team Providers Care Liquor Tester Name Role Phone Passer Deepika ORELLANA Primary Care Physician Encounter [facility] [place] Date(s): 11/18/19 - 12/19/19 [facility] [address] [place] [address]- [facility] Attending Physician: Carole Rodriguez NP Admitting Physician: Carole Rodriguez NP Allergies, Adverse Reactions, Alerts Substance Reaction Severity [...]
--- OUTSIDE RECORDS SUMMARY | 2022-12-19 20:54 | XMS_ITS | Continuity of Care Document ---
Author Name Unknown Organization [facility] Address [address], [address], [address] [place] [address]- Care Team Providers Care Professor Of Fine Art Name Role Phone Passer Deepika ORELLANA Primary Care Physician Encounter [facility] [place] Date(s): 12/08/19 - 01/07/20 [facility] [address], [address], [address] [place] [address]- [facility] Attending Physician: Sissy Loving Admitting Physician: AdmtrSissy Referring Physician: Admtr, Ar8 Allergies, Adverse Reactions, [...] 08/25/19 10:32:00 EDT, Route to Pharmacy Electronically, [id number]/pharmacy #[id number], 146.7, cm, 06/02/18 10:38:00 EST, Height Start Date: 08/25/19 Status: Ordered Protonix 20 mg oral delayed release tablet 1 tablet = 20 mg, By Mouth, Daily at bedtime, for acid, # 30 tablet, 2 Refills, Maintenance, 01/01/20 12:58:00 EDT, CR Tablet, 146.7, cm, 06/02/18 10:38:00 EST, Height Start Date: 01/01/20 Status: Ordered Problem List Condition Effective Dates Status Health Status Inform ant Chronic headaches(Confirmed) Active Hyperemesis(Confirmed) 1 Active 1increased wgt loss since +pt Social History Social History Type Response Smoking Status Former smoker; Type: Cigarettes; Tobacco use times per day: 2-3 PER DAY; Started at age: 14; Stopped at age: 33; entered on: 12/31/17 Sex
--- OUTSIDE RECORDS SUMMARY | 2022-12-19 20:54 | XMS_ITS | Continuity of Care Document ---
Author Name Unknown Organization [email or web address] Address [address], [address] [place] [address]- Care Team Providers Care Loom Tuner Name Role Phone Passer Deepika ORELLANA Primary Care Physician Encounter [facility] [place] Date(s): 11/28/20 - 12/28/20 [email or web address] [address] [place], [place] [address] Allergies, Adverse Reactions, Alerts Substance Reaction Severity Status NKA Active Immunizations Given and Recorded Vaccine Date Status Refusal Reason tetanus/diphtheria/pertussis, acel(Tdap) 12/28/14 Given Medications albuterol 90 mcg/inh inhalation powder 1 puffs, Inhalation, Every 4 hours, PRN as needed, for asthma, # 1 each, 2 Refills, Maintenance, 05/31/20 11:25:00 EST, Powder, [facility]/pharmacy #207, Duplicate rx-Original rx sent 08/25/19. Remaining refills sent., 1 puffs Inhalation Every 4 hours,PRN:as... Start Date: 05/31/20 Status: Ordered Samantha 0.35 mg oral tablet 1 tablet = 0.35 mg, By Mouth, Daily, # 90 tablet, 11 Refills, Maintenance, 07/14/19 13:49:00 EDT, Tablet, [facility], 146.7, cm, 06/02/18 10:38:00 EST, Height [...] 10:32:00 EDT, Route to Pharmacy Electronically, [facility]/pharmacy #[id number], 146.7, cm, 06/02/18 10:38:00 EST, Height Start Date: 08/25/19 Status: Ordered mirtazapine 30 mg oral tablet 1 tablet = 30 mg, By Mouth, Daily at bedtime, for sleep, # 30 tablet, 11 Refills, Maintenance, 04/11/20 13:34:00 EST, Tablet, [facility]/pharmacy #[id number], 146.7, cm, 04/11/20 12:42:00 EST, [...]
--- OUTSIDE RECORDS SUMMARY | 2022-12-19 20:54 | XMS_ITS | Continuity of Care Document ---
Author Name Unknown Organization [facility] Address [address] [place] [address]- Care Team Providers Care Lathe Operator Name Role Phone Passer Deepika ORELLANA Primary Care Physician Encounter [facility] [place] Date(s): 11/29/21 - 02/02/[address] [address]- Attending Physician: Not on Staff, Attending MD Referring Physician: Roseline Barker MD Allergies, Adverse Reactions, Alerts No Known Allergies Immunizations Given and Recorded Vaccine Date Status Refusal Reason tetanus/diphtheria/pertussis, acel(Tdap) 05/23/21 Given tetanus/diphtheria/pertussis, acel(Tdap) 12/28/14 Given Medications acetaminophen 325 mg oral tablet 650 mg, By Mouth, Every 4 hours, PRN, (1-3), may give 325mg per patient preference and re-dose [id number] within 4 hours, if needed. Patient should [...] # 60 tablet, 0 Refills, [facility], 145, cm, 08/11/21 8:46:00 EDT, Height, 69.5, [...] 0 Refills, Maintenance, 08/11/21 5:13:00 EDT, Tablet, [facility]/pharmacy #[id number], Partial fill upon patient request [...] 8.5 each, Refills 0, Route to Pharmacy Electronically,[id number], [facility], 145, cm, 05/26/21 11:48:00 EST, Height Start Date: 06/19/21 Status: Ordered Unisom 25 mg oral tablet See Instructions, take 1 tablet by mouth at bedtime, # 30 tablet, 1 Refills, Maintenance, 04/19/21 12:03:00 EST, [facility]/pharmacy #[id number], Partial fill upon patient request if the prescription is for a schedule II opioid drug., 145, cm, 03/28/21 12:21:00 ES... Start Date: 04/19/21 Status: Ordered Problem List Condition Confirmation Course Effective Dates Status Health St atus Informant Asthma Confirmed Active Chronic headaches Confirmed Active GERD (gastroesophageal reflux disease) Confirmed Active History of varicella vaccination Confirmed Active Obese class I Confirmed Active Post traumatic stress disorder (PTSD) Confirmed Active Social History Social History Type Response Smoking Status Former smoker, quit more than 30 days ago entered on: 04/11/20 Sex Patient Care team information Personnel Name: Deepika Ngo Address: Address: [address] [place] [address]
--- OUTSIDE RECORDS SUMMARY | 2022-12-19 20:54 | XMS_ITS | Continuity of Care Document ---
Author Name Unknown Organization [facility] Address [address] [place] [address]- Care Team Providers Care Towel Rolling Machine Operator Name Role Phone Passer Deepika ORELLANA Primary Care Physician [place] [facility] [place] 03/01/22 - 03/31/22 [facility]/[address] [address]- [place] Allergies, Adverse Reactions, Alerts No Known Allergies Immunizations Given and Recorded Vaccine Date Status Refusal Reason tetanus/diphtheria/pertussis, acel(Tdap) 05/23/21 Given tetanus/diphtheria/pertussis, acel(Tdap) 12/28/14 Given Measles/Mumps/Rubella Virus Vaccine 03/27/17 Recor ded hepatitis B pediatric vaccine 03/27/17 Recorded Medications acetaminophen 325 mg oral tablet 650 mg, By Mouth, Every 4 hours, PRN, (1-3), may give 325mg per patient preference and re-dose [id number] within 4 hours, if needed. Patient should [...] tablet, 3 Refills, Maintenance,03/21/22 11:20:00 EST, Tablet, [facility]/pharmacy #[id number], Partial fill upon patient request if the prescription is for a schedule II opioid drug., 145, cm, 11... Start Date: 03/21/22 Status: Ordered Heartburn Relief 10 mg oral tablet 1 tablet, By Mouth, 2 times a day, PRN NEEDED FOR DYSPEPSIA, # 60 tablet, 0 Refills, [facility] 601[facility], 145, cm, 08/11/21 8:46:00 EDT, Height, 69.5, kg, 08/09/21 8:30:00 EDT, Dry Weight Start Date: 08/22/21 Status: Ordered hydrOXYzine hydrochloride 25 mg oral tablet 1 tablet = 25 mg, By Mouth, Every 6 hours, PRN for anxiety, # 60 tablet, 2 Refills, Maintenance, 03/21/22 11:20:00 EST, Tablet, [facility]/pharmacy #[id number], Partial fill upon patient request [...] 03/21/22 11:19:00 EST, Route to Pharmacy Electronically, [facility]/pharmacy #[id number], Partial fill upon patien... Start Date: [...] 8.5 each, Refills 0, Route to Pharmacy Electronically,[id number], [facility], 145, cm, 05/26/21 11:48:00 EST, Height Start Date: 06/19/21 Status: Ordered Unisom 25 mg oral tablet See Instructions, take 1 tablet by mouth at bedtime, # 30 tablet, 1 Refills, Maintenance, 04/19/21 12:03:00 EST, [facility]/pharmacy #[id number], Partial fill upon patient request [...] Associate Professional Member Role: PCP Address: Address: [address] [place] [address] Care Team Related Persons Name: DENISE TINAJERO Address: home [address] [place] [address] Name: JIM LEE Address: home [address] [place] [address] Name: JIM LEE Address: [address] Address: home [address] [place] [address]
--- OUTSIDE RECORDS SUMMARY | 2022-12-19 20:54 | XMS_ITS | Continuity of Care Document ---
Author Name Unknown Organization [facility] Address [address] [place] [address]- Care Team Providers Care Mail Inserter Name Role Phone Passer Deepika ORELLANA Primary Care Physician Encounter [facility] [place] Date(s): 04/11/20 - 05/11/20 [facility] [address] [place] [address]- Attending Physician: Admtr, Alec8 Admitting Physician: Admtr, Ar8 Referring Physician: Admtr, [...] 08/25/19 10:32:00 EDT, Route to Pharmacy Electronically, [facility]/pharmacy #[id number], 146.7, cm, 06/02/18 10:38:00 EST, Height Start Date: 08/25/19 Status: Ordered mirtazapine 30 mg oral tablet 1 tablet = 30 mg, By Mouth, Daily at bedtime, for sleep, # 30 tablet, 11 Refills, Maintenance, 04/11/20 13:34:00 EST, Tablet, [facility]/pharmacy #[id number], 146.7, cm, 04/11/20 12:42:00 [...]
--- OUTSIDE RECORDS SUMMARY | 2022-12-19 20:54 | XMS_ITS | Continuity of Care Document ---
Author Name Unknown Organization [facility] Address Unknown Care Team Providers Care Network Operations Technician Name Role Phone Passer Deepika ORELLANA Primary Care Physician Encounter [facility] [place] Date(s): 09/15/21 - 10/15/21 [facility] Attending Physician: Sissy Loving Admitting Physician: Sissy Loving Referring Physician: Sissy Loving Allergies, Adverse Reactions, Alerts No Known Allergies Immunizations Given and Recorded Vaccine Date Status Refusal Reason tetanus/diphtheria/pertussis, acel(Tdap) 05/23/21 Given tetanus/diphtheria/pertussis, acel(Tdap) 12/28/14 Given Medications acetaminophen 325 mg oral tablet 650 mg, By Mouth, Every 4 hours, PRN, (1-3), may give 325mg per patient preference and re-dose [id number] within 4 hours, if needed. Patient should [...] # 60 tablet, 0 Refills, [facility], 145, cm, 08/11/21 8:46:00 EDT, Height, 69.5, [...] 8.5 each, Refills 0, Route to Pharmacy Electronically,[id number], [facility], 145, cm, 05/26/21 11:48:00 EST, Height Start Date: 06/19/21 Status: Ordered Unisom 25 mg oral tablet See Instructions, take 1 tablet by mouth at bedtime, # 30 tablet, 1 Refills, Maintenance, 04/19/21 12:03:00 EST, [facility]/pharmacy #[id number], Partial fill upon patient request if [...]
--- OUTSIDE RECORDS SUMMARY | 2022-12-19 20:55 | XMS_ITS | Continuity of Care Document ---
Author Name Unknown Organization [facility] Address Unknown Care Team Providers Care Heart Specialist Name Role Phone Passer Deepika ORELLANA Primary Care Physician Encounter [facility] [place] Date(s): 06/19/21 - 07/19/21 [facility] Allergies, Adverse Reactions, Alerts No Known Allergies Immunizations Given and Recorded Vaccine Date Status Refusal Reason tetanus/diphtheria/pertussis, acel(Tdap) 05/23/21 Given tetanus/diphtheria/pertussis, acel(Tdap) 12/28/14 Given Medications aspirin 81 mg oral delayed release tablet See Instructions, 2 tablet By Mouth Daily at bedtime, # 60 tablet, Refills 8, Tot. Refills 8, Maintenance, 02/07/21 10:30:00 EDT, Instructions Replace Required Details, Route to Pharmacy Electronically, [facility]/pharmacy #207, Partial fill upon patient re... Start Date: [...] 1 Refills, Maintenance, 06/06/21 11:41:00 EST, Tablet, [facility]/pharmacy #[id number], Partial fill upon patient request if the prescriptionis for a schedule II opioid drug., 145, cm, ... Start Date: 06/06/21 Status: Ordered Multivitamins with Folic Acid 1 mg oral tablet 1 tablet, By Mouth, Daily, # 90 tablet, 2 Refills, Maintenance, 01/02/21 11:05:00 EDT, [facility]/pharmacy#[id number], Partial fill upon patient request if the prescription is for a schedule II opioid drug., 1 tablet By Mouth Daily, 145, cm, 01/02/21 10:26:00 EDT... Start Date: 01/02/21 Status: Ordered ProAir HFA 90 mcg/inh inhalation aerosol with adapter 1-2 PUFFS, Inhalation, Every 6 hours, PRN, # 8.5 each, Refills 0, Route to Pharmacy Electronically,[id number], [facility] 0[facility], 145, cm, 05/26/21 11:48:00 EST, Height Start Date: 06/19/21 Status: Ordered Unisom 25 mg oral tablet See Instructions, take 1 tablet by mouth at bedtime, # 30 tablet, 1 Refills, Maintenance, 04/19/21 12:03:00 EST, [facility]/pharmacy #[id number], Partial fill upon patient request if [...]
--- OUTSIDE RECORDS SUMMARY | 2022-12-19 20:55 | XMS_ITS | Continuity of Care Document ---
Author Name Unknown Organization [facility] Address [address] [place] [address]- Care Team Providers Care Distribution Sales Manager Name Role Phone Deepika Ngo Primary Care Physician [place] [facility] [place] Date(s): 01/01/22 - 01/08/22 [facility] [address] [place] [address]- Attending Physician: Alba Vivar MD Admitting Physician: Alba Vivar MD Referring Physician: Deepika Ngo Allergies, Adverse Reactions, Alerts No Known Allergies Immunizations Given and Recorded Vaccine Date Status Refusal Reason tetanus/diphtheria/pertussis, acel(Tdap) 05/23/21 Given tetanus/diphtheria/pertussis, acel(Tdap) 12/28/14 Given Medications acetaminophen 325 mg oral tablet 650 mg, By Mouth, Every 4 hours, PRN, (1-3), may give 325mg per patient preference and re-dose [id number] within 4 hours, if needed. Patient should [...] # 60 tablet, 0 Refills, [facility], 145, cm, 08/11/21 8:46:00 EDT, Height, 69.5, [...] 8.5 each, Refills 0, Route to Pharmacy Electronically,[id number], [facility], 145, cm, 05/26/21 11:48:00 EST, Height Start Date: 06/19/21 Status: Ordered Unisom 25 mg oral tablet See Instructions, take 1 tablet by mouth at bedtime, # 30 tablet, 1 Refills, Maintenance, 04/19/21 12:03:00 EST, [facility]/pharmacy #5311, Partial fill upon patient request if the [...] Most recent to oldest [Reference Range]: 1 Height 145 cm (01/03/22 10:22 AM) Weight 69.5 kg (01/03/22 10:22 AM) Social History Social History Type Response Smoking Status Former smoker, quit more than 30 days ago entered on: 04/11/20 Sex Care Team Personnel Name: Deepika Ngo Address: [address] [place] [address]
--- OUTSIDE RECORDS SUMMARY | 2022-12-19 20:55 | XMS_ITS | Continuity of Care Document ---
Author Name Unknown Organization [facility] Address [address] [place] [address]- Care Team Providers Care Pneumatic Tube Fitter Name Role Phone Deepika Ngo Primary Care Physician Encounter [facility] [place] Date(s): 12/04/21 - 02/18/22 [facility]/[address] [address]- Attending Physician: Deepika Ngo Admitting Physician: Deepika Ngo Allergies, Adverse Reactions, Alerts No Known Allergies Immunizations Given and Recorded Vaccine Date Status Refusal Reason tetanus/diphtheria/pertussis, acel(Tdap) 05/23/21 Given tetanus/diphtheria/pertussis, acel(Tdap) 12/28/14 Given Medications acetaminophen 325 mg oral tablet 650 mg, By Mouth, Every 4 hours, PRN, (1-3), may give 325mg per patient preference and re-dose [id number] within 4 hours, if needed. Patient should [...] # 60 tablet, 0 Refills, [facility], 145, cm, 08/11/21 8:46:00 EDT, Height, 69.5, [...] 8.5 each, Refills 0, Route to Pharmacy Electronically,[id number], [facility], 145, cm, 05/26/21 11:48:00 EST, Height Start Date: 06/19/21 Status: Ordered Unisom 25 mg oral tablet See Instructions, take 1 tablet by mouth at bedtime, # 30 tablet, 1 Refills, Maintenance, 04/19/21 12:03:00 EST, [facility]/pharmacy #6511, Partial fill upon patient request if the [...] information Personnel Name: Deepika Ngo Address: Address: [address] [place] [address]
--- OUTSIDE RECORDS SUMMARY | 2022-12-19 20:55 | XMS_ITS | Continuity of Care Document ---
Author Name Unknown Organization [facility] Address [address] [place] [address]- Care Team Providers Care Communications Department Head Name Role Phone Passer Deepika ORELLANA Primary Care Physician Encounter [facility] [place] Date(s): 11/19/19 - 12/19/19 [facility] [address] [place] [address]- [facility] Attending Physician: Sissy Loving Admitting Physician: Admtr, Alec8 Referring Physician: Admtr, Ar8 Allergies, Adverse Reactions, [...] 10:32:00 EDT, Route to Pharmacy Electronically, [facility]/pharmacy #[id number], 146.7, cm, 06/02/18 10:38:00 EST, Height [...]
--- OUTSIDE RECORDS SUMMARY | 2022-12-19 20:55 | XMS_ITS | Continuity of Care Document ---
Author Name Unknown Organization [facility] Address [address] [place] [address]- Care Team Providers Care Marketing Project Specialist Name Role Phone Deepika Ngo Primary Care Physician Encounter [facility] [place] Date(s): 01/15/20 - 02/21/20 [facility] [address] [place] [address]- [facility] Attending Physician: Diane Aguillon MD Admitting Physician: Diane Aguillon MD Referring Physician: Deepika Ngo Allergies, Adverse [...] Height Start Date: 08/25/19 Status: Ordered mirtazapine 15 mg oral tablet 1 tablet = 15 mg, By Mouth, Daily at bedtime, for sleep and appetite, # 30 tablet, 2 Refills, Maintenance, 01/20/20 9:05:00 EDT, Tablet, [facility]/pharmacy #[id number], 146.7, cm, 06/02/18 10:38:00 EST, Height Start Date: 01/20/20 Status: Ordered Protonix 20 mg oral delayed [...]
--- OUTSIDE RECORDS SUMMARY | 2022-12-19 20:55 | XMS_ITS | Continuity of Care Document ---
Author Name Unknown Organization [facility] Address [address] [place] [address]- Care Team Providers Care Financial Writer Name Role Phone Passer Deepika ORELLANA Primary Care Physician Encounter [facility] Date(s): 05/31/20 - 06/30/20 [facility] [address] [place] [address]- Allergies, Adverse Reactions, Alerts Substance Reaction Severity Status NKA Active Immunizations Given and Recorded Vaccine Date Status Refusal Reason tetanus/diphtheria/pertussis, acel(Tdap) 12/28/14 Given Medications albuterol 90 mcg/inh inhalation powder 1 puffs, Inhalation, Every 4 hours, PRN as needed, for asthma, # 1 each, 2 Refills, Maintenance, 05/31/20 11:25:00 EST, Powder, [facility]/pharmacy #207, Duplicate rx-Original rx sent 08/25/19. Remaining refills sent., 1 puffs Inhalation Every 4 hours,PRN:as... Start Date: 05/31/20 Status: Ordered Samantha 0.35 mg oral tablet 1 tablet = 0.35 mg, By Mouth, Daily, # 90 tablet, 11 Refills, Maintenance, 07/14/19 13:49:00 EDT, Tablet, [facility]/pharmacy #207, 146.7, cm, 06/02/18 10:38:00 EST, Height [...] 08/25/19 10:32:00 EDT, Route to Pharmacy Electronically, [facility]/pharmacy #[id number], 146.7, cm, 06/02/18 10:38:00 EST, Height Start Date: 08/25/19 Status: Ordered mirtazapine 30 mg oral tablet 1 tablet = 30 mg, By Mouth, Daily at bedtime, for sleep, # 30 tablet, 11 Refills, Maintenance, 04/11/20 13:34:00 EST, Tablet, [facility]/pharmacy #[id number], 146.7, cm, 04/11/20 12:42:00 EST, [...]
--- OUTSIDE RECORDS SUMMARY | 2022-12-19 20:55 | XMS_ITS | Continuity of Care Document ---
Author Name Unknown Organization [facility] Address [address] [place] [address]- Care Team Providers Care Director Of Marketing Operations Name Role Phone Passer Deepika ORELLANA Primary Care Physician Encounter [facility] [place] Date(s): 01/03/22 - 02/02/[address] [address]- Attending Physician: Sissy Loving Admitting Physician: Sissy Loving Referring Physician: Sissy Loving Allergies, Adverse Reactions, Alerts No Known Allergies Immunizations Given and Recorded Vaccine Date Status Refusal Reason tetanus/diphtheria/pertussis, acel(Tdap) 05/23/21 Given tetanus/diphtheria/pertussis, acel(Tdap) 12/28/14 Given Medications acetaminophen 325 mg oral tablet 650 mg, By Mouth, Every 4 hours, PRN, (1-3), may give 325mg per patient preference and re-dose [id number] within 4 hours, if needed. Patient should [...] # 60 tablet, 0 Refills, [facility], 145, cm, 08/11/21 8:46:00 EDT, Height, 69.5, [...] 0 Refills, Maintenance, 08/11/21 5:13:00 EDT, Tablet, [facility]/pharmacy #[id number], Partial fill upon patient request [...] 8.5 each, Refills 0, Route to Pharmacy Electronically,[id number], [facility], 145, cm, 05/26/21 11:48:00 EST, Height Start Date: 06/19/21 Status: Ordered Unisom 25 mg oral tablet See Instructions, take 1 tablet by mouth at bedtime, # 30 tablet, 1 Refills, Maintenance, 04/19/21 12:03:00 JAUN [facility]/pharmacy #[id number], Partial fill upon patient request if the [...] information Personnel Name: Deepika Ngo Address: Address: [address] [place] [address]
--- OUTSIDE RECORDS SUMMARY | 2022-12-19 20:55 | XMS_ITS | Continuity of Care Document ---
Author Name Unknown Organization [facility] Address [address] [place] [address]- Care Team Providers Care Animal Nutrition Consultant Name Role Phone Passer Deepika ORELLANA Primary Care Physician [place] [facility] [place] - 01/26/[address] [address] Allergies, Adverse Reactions, Alerts Substance Reaction Severity Status NKA Active Immunizations Given and Recorded Vaccine Date Status Refusal Reason tetanus/diphtheria/pertussis, acel(Tdap) 12/28/14 Given Medications albuterol 90 mcg/inh inhalation powder 1 puffs, Inhalation, Every 4 hours, PRN as needed, for asthma, # 1 each, 2 Refills, Maintenance, 05/31/20 11:25:00 EST, Powder, [facility]/pharmacy #[id number], Duplicate rx-Original rx sent 08/25/19. Remaining refills sent., 1 puffs Inhalation Every 4 hours,PRN:as... Start Date: 05/31/20 Status: Ordered Samantha 0.35 mg oral tablet 1 tablet = 0.35 mg, By Mouth, Daily, # 90 tablet, 11 Refills, Maintenance, 07/14/19 13:49:00 EDT, Tablet, [facility]/pharmacy #207, 146.7, cm, 06/02/18 10:38:00 EST, [...] 08/25/19 10:32:00 EDT, Route to Pharmacy Electronically, [facility]/pharmacy #2070, 146.7, cm, 06/02/18 10:38:00 EST, Height Start Date: 08/25/19 Status: Ordered mirtazapine 30 mg oral tablet 1 tablet = 30 mg, By Mouth, Daily at bedtime, for sleep, # 30 tablet, 11 Refills, Maintenance, 04/11/20 13:34:00 EST, Tablet, [facility]/pharmacy #207, 146.7, cm, 04/11/20 12:42:00 EST, Height Start Date: 04/11/20 Status: Ordered Multivitamins with Folic Acid 1 mg oral tablet 1 tablet, By Mouth, Daily, # 90 tablet, 2 Refills, Maintenance, 01/02/21 11:05:00 EDT, [facility]/pharmacy#2071, Partial fill upon patient [...] Acute 04/12/21 13:32:00 EST, 01/10/21 13:32:00 EDT, [facility]/pharmacy #207, Partial fill... Start Date: 01/10/21 Stop Date: [...]
--- OUTSIDE RECORDS SUMMARY | 2022-12-19 20:55 | XMS_ITS | Continuity of Care Document ---
Author Name Unknown Organization [facility] Address [address] [place] [address]- Care Team Providers Care Hair Clipper Power Name Role Phone Passer Deepika ORELLANA Primary Care Physician [place] [facility] [place] - 03/01/[address] [facility] [address] [place] [id number] Attending Physician: Sissy Loving Admitting Physician: AdmtrSissy Referring Physician: Admtr, Ar8 Allergies, Adverse Reactions, Alerts Substance Reaction Severity Status NKA Active Immunizations Given and Recorded Vaccine Date Status Refusal Reason tetanus/diphtheria/pertussis, acel(Tdap) 12/28/14 Given Medications albuterol 90 mcg/inh inhalation powder 1 puffs, Inhalation, Every 4 hours, PRN as needed, for asthma, # 1 each, 2 Refills, Maintenance, 05/31/20 11:25:00 EST, Powder, [facility]/pharmacy #207, Duplicate rx-Original rx sent 08/25/19. Remaining refills sent., 1 puffs Inhalation Every 4 hours,PRN:as... Start Date: 05/31/20 Status: Ordered aspirin 81 mg oral delayed release tablet See Instructions, 2 tablet By Mouth Daily at bedtime, # 60 tablet, Refills 8, Tot. Refills 8, Maintenance, 02/07/21 10:30:00 EDT, Instructions Replace Required Details, Route to Pharmacy Electronically, [facility]/pharmacy #207, Partial fill upon patient re... Start Date: 02/07/21 Status: Ordered Samantha 0.35 mg oral tablet 1 tablet = 0.35 mg, By Mouth, Daily, # 90 tablet, 11 Refills, Maintenance, 07/14/19 13:49:00 EDT, Tablet, [facility]/pharmacy #207, 146.7, cm, 06/02/18 10:38:00 EST, [...] 08/25/19 10:32:00 EDT, [id number] 146.7, cm, 06/02/18 10:38:00 EST, Height Start Date: 08/25/19 Status: Ordered mirtazapine 30 mg oral tablet 1 tablet = 30 mg, By Mouth, Daily at bedtime, for sleep, # 30 tablet, 11 Refills, Maintenance, 04/11/20 13:34:00 EST, Tablet, [facility]/pharmacy #[id number], 146.7, cm, 04/11/20 12:42:00 EST, Height Start Date: 04/11/20 Status: Ordered Multivitamins with Folic Acid 1 mg oral tablet 1 tablet, By Mouth, Daily, # 90 tablet, 2 Refills, Maintenance, 01/02/21 11:05:00 EDT, [facility] Partial fill upon patient request if the [...] drowiness, # 30 tablet, 1 Refills, Acute 12/22/21 13:32:00 EST, 01/10/21 13:32:00 EDT, [id number], [facility]... Start Date: 01/10/21 Stop [...]
--- OUTSIDE RECORDS SUMMARY | 2022-12-19 20:55 | XMS_ITS | Continuity of Care Document ---
Author Name Unknown Organization [facility] Address Unknown Care Team Providers Care Telephone Sales Agent Name Role Phone Passer Deepika ORELLANA Primary Care Physician [place] [facility] [place]s): 05/29/21 - 06/28/21 [facility] Allergies, Adverse Reactions, Alerts No Known Allergies Immunizations Given and Recorded Vaccine Date Status Refusal Reason tetanus/diphtheria/pertussis, acel(Tdap) 05/23/21 Given tetanus/diphtheria/pertussis, acel(Tdap) 12/28/14 Given Medications aspirin 81 mg oral delayed release tablet See Instructions, 2 tablet By Mouth Daily at bedtime, # 60 tablet, Refills 8, Tot. Refills 8, Maintenance, 02/07/21 10:30:00 EDT, Instructions Replace Required Details, Route to Pharmacy Electronically, [facility]/pharmacy #[id number], Partial fill upon patient re... Start Date: [...] 1 Refills, Maintenance, 06/06/21 11:41:00 EST, Tablet, [facility]/pharmacy #[id number], Partial fill upon patient request if the prescriptionis for a schedule II opioid drug., 145, cm, ... Start Date: 06/06/21 Status: Ordered Multivitamins with Folic Acid 1 mg oral tablet 1 tablet, By Mouth, Daily, # 90 tablet, 2 Refills, Maintenance, 01/02/21 11:05:00 EDT, [facility]/pharmacy#[id number], Partial fill upon patient request if the prescription is for a schedule II opioid drug., 1 tablet By Mouth Daily, 145, cm, 01/02/21 10:26:00 EDT... Start Date: 01/02/21 Status: Ordered ProAir HFA 90 mcg/inh inhalation aerosol with adapter 1-2 PUFFS, Inhalation, Every 6 hours, PRN, # 8.5 each, Refills 0, Route to Pharmacy Electronically,[id number], [id number], 145, cm, 05/26/21 11:48:00 EST, Height Start Date: 06/19/21 Status: Ordered Unisom 25 mg oral tablet See Instructions, take 1 tablet by mouth at bedtime, # 30 tablet, 1 Refills, Maintenance, 04/19/21 12:03:00 EST, [facility]/pharmacy #[id number], Partial fill upon patient [...]
--- OUTSIDE RECORDS SUMMARY | 2022-12-19 20:55 | XMS_ITS | Continuity of Care Document ---
Author Name Unknown Organization [facility] Address [address] [place] [address]- Care Team Providers Care Claim Auditor Name Role Phone Deepika Ngo Primary Care Physician [place] [facility] [place](s): 01/12/22 - 05/12/[address] [facility] [address] [address]- Attending Physician: Alba Vivar MD Admitting Physician: [...] give 325mg per patient preference and re-dose [id number] within 4 hours, if needed. Patient should [...] tablet, 3 Refills, Maintenance,03/21/22 11:20:00 EST, Tablet, [facility]/pharmacy #[id number], Partial fill upon patient request if the prescription is for a schedule II opioid drug., 145, cm, 11... Start Date: 03/21/22 Status: Ordered Heartburn Relief 10 mg oral tablet 1 tablet, By Mouth, 2 times a day, PRN NEEDED FOR DYSPEPSIA, # 60 tablet, 0 Refills, [facility] 278[facility], 145, cm, 08/11/21 8:46:00 EDT, Height, 69.5, kg, 08/09/21 8:30:00 EDT, Dry Weight Start Date: 08/22/21 Status: Ordered hydrOXYzine hydrochloride 25 mg oral tablet 1 tablet = 25 mg, By Mouth, Every 6 hours, PRN for anxiety, # 60 tablet, 2 Refills, Maintenance, 03/21/22 11:20:00 EST, Tablet, [facility]/pharmacy #[id number], Partial fill upon patient request [...] 03/21/22 11:19:00 EST, Route to Pharmacy Electronically, [facility]/pharmacy #[id number], Partial fill upon patien... Start Date: 03/21/22 Status: Ordered ondansetron 4 mg oral tablet, disintegrating = 4 mg, By Mouth, Every 6 hours, PRN Nausea & Vomiting, # 20 tablet, 0 Refills, Maintenance, 08/11/21 5:13:00 EDT, Tablet, [facility]/pharmacy #[id number], Partial fill upon patient request if the prescription is for a schedule II opioid drug., 145, cm, 08/10/21 1... Start Date: 08/11/21 Status: Ordered permethrin 1% topical lotion 1 application, Topically, Once, Apply to freshly washed, slightly dried hair x 10 minutes, then rinse. Repeat in 7 days, # 240 mL, 1 Refills, Soft Stop, 05/08/22 13:38:00 EST, Lotion, [facility]/pharmacy #[id number], Partial fill upon patient request if the prescr... Start Date: 05/08/22 Status: Ordered Multivitamins with Folic Acid 1 mg oral tablet 1 tablet, By Mouth, Daily, # 90 tablet, 2 Refills, Maintenance, 01/02/21 11:05:00 EDT, [facility]/pharmacy#[id number], Partial fill upon patient request if the prescription is for a schedule II opioid drug., 1 tablet By Mouth Daily, 145, cm, 01/02/21 10:26:00 EDT... Start Date: 01/02/21 Status: Ordered ProAir HFA 90 mcg/inh inhalation aerosol with adapter 1-2 PUFFS, Inhalation, Every 6 hours, PRN, # 8.5 each, Refills 0, Route to Pharmacy Electronically,[id number], [facility] [address], 145, cm, 05/26/21 11:48:00 EST, Height Start Date: 06/19/21 Status: Ordered Unisom 25 mg oral tablet See Instructions, take 1 tablet by mouth at bedtime, # 30 tablet, 1 Refills, Maintenance, 04/19/21 12:03:00 EST, [facility]/pharmacy #[id number], Partial fill upon patient request [...] Professional Member Role: PCP Address: Address: [address] [place] [address]- [place] Care Team Related Persons Name: DENISE TINAJERO Address: home [address] [place] [address] Name: JIM LEE Address: [address] Address: home [address] [place] [address] Name: JIM LEE Address: [place] [address] [place] [address]
--- OUTSIDE RECORDS SUMMARY | 2022-12-19 20:55 | XMS_ITS | Continuity of Care Document ---
Author Name Unknown Organization [facility] Address [address] [place] [address]- Care Team Providers Care Rolling Attendant Name Role Phone Passer Deepika ORELLANA Primary Care Physician [place] [facility] [place]18/[place] [facility]/[address] [address]- Attending Physician: Sissy Loving Admitting Physician: Sissy Loving Referring Physician: Sissy Loving Allergies, Adverse Reactions, Alerts No Known Allergies Immunizations Given and Recorded Vaccine Date Status Refusal Reason tetanus/diphtheria/pertussis, acel(Tdap) 05/23/21 Given tetanus/diphtheria/pertussis, acel(Tdap) 12/28/14 Given Medications acetaminophen 325 mg oral tablet 650 mg, By Mouth, Every 4 hours, PRN, (1-3), may give 325mg per patient preference and re-dose [id number] within 4 hours, if needed. Patient should [...] # 60 tablet, 0 Refills, [facility], 145, cm, 08/11/21 8:46:00 EDT, Height, 69.5, [...] 0 Refills, Maintenance, 08/11/21 5:13:00 EDT, Tablet, [facility]/pharmacy #[id number], Partial fill upon patient request [...] 8.5 each, Refills 0, Route to Pharmacy Electronically,[id number], [facility], 145, cm, 05/26/21 11:48:00 EST, Height Start Date: 06/19/21 Status: Ordered Unisom 25 mg oral tablet See Instructions, take 1 tablet by mouth at bedtime, # 30 tablet, 1 Refills, Maintenance, 04/19/21 12:03:00 EST, [facility]/pharmacy #[id number], Partial fill upon patient request if the [...] information Personnel Name: Deepika Ngo Address: Address: [address] [place] [address]
--- OUTSIDE RECORDS SUMMARY | 2022-12-19 20:55 | XMS_ITS | Continuity of Care Document ---
Author Name Unknown Organization [facility] Address [address] [place] [address]- Care Team Providers Care Cloth Desizing Range Tender Name Role Phone Passer Deepika ORELLANA Primary Care Physician [place] [facility] [place] 06/17/22 [facility]/[address] [address]- Attending Physician: Not on Staff, Attending MD [...] give 325mg per patient preference and re-dose [id number] within 4 hours, if needed. Patient should [...] tablet, 3 Refills, Maintenance,03/21/22 11:20:00 EST, Tablet, [facility]/pharmacy #[id number], Partial fill upon patient request if the prescription is for a schedule II opioid drug., 145, cm, 11... Start Date: 03/21/22 Status: Ordered Heartburn Relief 10 mg oral tablet 1 tablet, By Mouth, 2 times a day, PRN NEEDED FOR DYSPEPSIA, # 60 tablet, 0 Refills, [facility] 220[facility], 145, cm, 08/11/21 8:46:00 EDT, Height, 69.5, kg, 08/09/21 8:30:00 EDT, Dry Weight Start Date: 08/22/21 Status: Ordered hydrOXYzine hydrochloride 25 mg oral tablet 1 tablet = 25 mg, By Mouth, Every 6 hours, PRN for anxiety, # 60 tablet, 2 Refills, Maintenance, 03/21/22 11:20:00 EST, Tablet, [facility]/pharmacy #[id number], Partial fill upon patient request [...] 03/21/22 11:19:00 EST, Route to Pharmacy Electronically, [facility]/pharmacy #[id number], Partial fill upon patien... Start Date: 03/21/22 Status: Ordered ondansetron 4 mg oral tablet, disintegrating = 4 mg, By Mouth, Every 6 hours, PRN Nausea & Vomiting, # 20 tablet, 0 Refills, Maintenance, 08/11/21 5:13:00 EDT, Tablet, [facility]/pharmacy #[id number], Partial fill upon patient request if the prescription is for a schedule II opioid drug., 145, cm, 08/10/21 1... Start Date: 08/11/21 Status: Ordered permethrin 1% topical lotion 1 application, Topically, Once, Apply to freshly washed, slightly dried hair x 10 minutes, then rinse. Repeat in 7 days, # 240 mL, 1 Refills, Soft Stop, 05/08/22 13:38:00 EST, Lotion, [facility]/pharmacy #[id number], Partial fill upon patient request if the prescr... Start Date: 05/08/22 Status: Ordered Multivitamins with Folic Acid 1 mg oral tablet 1 tablet, By Mouth, Daily, # 90 tablet, 2 Refills, Maintenance, 01/02/21 11:05:00 EDT, [facility]/pharmacy#[id number], Partial fill upon patient request if the prescription is for a schedule II opioid drug., 1 tablet By Mouth Daily, 145, cm, 01/02/21 10:26:00 EDT... Start Date: 01/02/21 Status: Ordered ProAir HFA 90 mcg/inh inhalation aerosol with adapter 1-2 PUFFS, Inhalation, Every 6 hours, PRN, # 8.5 each, Refills 0, Route to Pharmacy Electronically,[id number], [facility] [address], 145, cm, 05/26/21 11:48:00 EST, Height Start Date: 06/19/21 Status: Ordered Unisom 25 mg oral tablet See Instructions, take 1 tablet by mouth at bedtime, # 30 tablet, 1 Refills, Maintenance, 04/19/21 12:03:00 EST, [facility]/pharmacy #[id number], Partial fill upon patient request [...] Associate Professional Member Role: PCP Address: Address: [address] [place] [address]- Care Team Related Persons Name: DENISE TINAJERO Address: [address] [place] [address] Name: JIM LEE Address: home [address] [place] [id number] Name: JIM LEE Address: [address] Address: [address]
--- OUTSIDE RECORDS SUMMARY | 2022-12-19 20:55 | XMS_ITS | Continuity of Care Document ---
Author Name Unknown Organization [facility] Address [address] [place] [address]- Care Team Providers Care Tc Operator Name Role Phone Passer Deepika ORELLANA Primary Care Physician [place] [facility] [place] 02/17/21 - 03/19/[address] [address]- Allergies, Adverse Reactions, Alerts Substance Reaction Severity Status NKA Active Immunizations Given and Recorded Vaccine Date Status Refusal Reason tetanus/diphtheria/pertussis, acel(Tdap) 12/28/14 Given Medications albuterol 90 mcg/inh inhalation powder 1 puffs, Inhalation, Every 4 hours, PRN as needed, for asthma, # 1 each, 2 Refills, Maintenance, 05/31/20 11:25:00 EST, Powder, [facility]/pharmacy #[id number], Duplicate rx-Original rx sent 08/25/19. Remaining refills sent., 1 puffs Inhalation Every 4 hours,PRN:as... Start Date: 05/31/20 Status: Ordered aspirin 81 mg oral delayed release tablet See Instructions, 2 tablet By Mouth Daily at bedtime, # 60 tablet, Refills 8, Tot. Refills 8, Maintenance, 02/07/21 10:30:00 EDT, Instructions Replace Required Details, Route to Pharmacy Electronically, [facility]/pharmacy #[id number], Partial fill upon patient re... Start Date: 02/07/21 Status: Ordered Ensure Pluse Ensure Pluse, See Instructions, # 90 each, Refills 1, Tot. Refills 1, Maintenance, Three per day., 12/31/17 11:43:35 EDT, weight loss, Compound Start Date: 12/31/17 Status: Ordered Multivitamins with Folic Acid 1 mg oral tablet 1 tablet, By Mouth, Daily, # 90 tablet, 2 Refills, Maintenance, 01/02/21 11:05:00 EDT, [facility]/pharmacy#[id number], Partial fill upon patient [...] 04/12/21 13:32:00 EST, 01/10/21 13:32:00 EDT, [facility]/pharmacy #[id number], Partial fill... Start Date: 01/10/21 Stop [...]
--- OUTSIDE RECORDS SUMMARY | 2022-12-19 20:55 | XMS_ITS | Continuity of Care Document ---
Author Name Unknown Organization [facility] Address [address] [place] [address]- Care Team Providers Care Outreach Director Name Role Phone Passer Deepika ORELLANA Primary Care Physician [place] [facility] [place] Date(s): 01/10/21 - 02/09/[address] [address] Allergies, Adverse Reactions, Alerts Substance Reaction Severity Status NKA Active Immunizations Given and Recorded Vaccine Date Status Refusal Reason tetanus/diphtheria/pertussis, acel(Tdap) 12/28/14 Given Medications albuterol 90 mcg/inh inhalation powder 1 puffs, Inhalation, Every 4 hours, PRN as needed, for asthma, # 1 each, 2 Refills, Maintenance, 05/31/20 11:25:00 EST, Powder, [facility]/pharmacy #207, Duplicate rx-Original rx sent 08/25/19. [...] 08/25/19 10:32:00 EDT, Route to Pharmacy Electronically, [facility]/pharmacy #[id number], 146.7, cm, 06/02/18 10:38:00 EST, Height Start Date: 08/25/19 Status: Ordered mirtazapine 30 mg oral tablet 1 tablet = 30 mg, By Mouth, Daily at bedtime, for sleep, # 30 tablet, 11 Refills, Maintenance, 04/11/20 13:34:00 EST, Tablet, [facility]/pharmacy #[id number], 146.7, cm, 04/11/20 12:42:00 EST, Height Start Date: 04/11/20 Status: Ordered Multivitamins with Folic Acid 1 mg oral tablet 1 tablet, By Mouth, Daily, # 90 tablet, 2 Refills, Maintenance, 01/02/21 11:05:00 EDT, [facility]/pharmacy#2071, Partial fill upon patient request if [...] Acute 04/12/21 13:32:00 EST, 01/10/21 13:32:00 EDT, [id number], [facility] fill... Start Date: 01/10/21 Stop Date: [...]
--- OUTSIDE RECORDS SUMMARY | 2022-12-19 20:55 | XMS_ITS | Continuity of Care Document ---
Author Name Unknown Organization [facility] Address [address] [place] [address]- Care Team Providers Care Document Imaging Manager Name Role Phone Passer Deepika ORELLANA Primary Care Physician [place] [facility] [place] - [place]/[address] [address] Allergies, Adverse Reactions, Alerts Substance Reaction Severity Status NKA Active Immunizations Given and Recorded Vaccine Date Status Refusal Reason tetanus/diphtheria/pertussis, acel(Tdap) 12/28/14 Given Medications albuterol 90 mcg/inh inhalation powder 1 puffs, Inhalation, Every 4 hours, PRN as needed, for asthma, # 1 each, 2 Refills, Maintenance, 05/31/20 11:25:00 EST, Powder, [facility]/pharmacy #207, Duplicate rx-Original rx sent 08/25/19. [...] 08/25/19 10:32:00 EDT, Route to Pharmacy Electronically, [facility]/pharmacy #[id number], 146.7, cm, 06/02/18 10:38:00 EST, Height Start Date: 08/25/19 Status: Ordered mirtazapine 30 mg oral tablet 1 tablet = 30 mg, By Mouth, Daily at bedtime, for sleep, # 30 tablet, 11 Refills, Maintenance, 04/11/20 13:34:00 EST, Tablet, [facility]/pharmacy #[id number], 146.7, cm, 04/11/20 12:42:00 EST, Height Start Date: 04/11/20 Status: Ordered Multivitamins with Folic Acid 1 mg oral tablet 1 tablet, By Mouth, Daily, # 90 tablet, 2 Refills, Maintenance, 01/02/21 11:05:00 EDT, [facility]/pharmacy#[id number], Partial fill upon patient request [...] 04/12/21 13:32:00 EST, 01/10/21 13:32:00 EDT, [id number], [facility] fill... Start Date: 01/10/21 Stop Date: [...]
--- OUTSIDE RECORDS SUMMARY | 2022-12-19 20:55 | XMS_ITS | Continuity of Care Document ---
Author Name Unknown Organization [facility] Address [address] [place] [address]- Care Team Providers Care Career Transition Specialist Name Role Phone Deepika Ngo Primary Care Physician [place] [facility] [place](s): 10/19/21 - 12/17/21 [facility]/[address] [address]- Attending Physician: Deepika Ngo Admitting Physician: Deepika Ngo Allergies, Adverse Reactions, Alerts No Known Allergies Immunizations Given and Recorded Vaccine Date Status Refusal Reason tetanus/diphtheria/pertussis, acel(Tdap) 05/23/21 Given tetanus/diphtheria/pertussis, acel(Tdap) 12/28/14 Given Medications acetaminophen 325 mg oral tablet 650 mg, By Mouth, Every 4 hours, PRN, (1-3), may give 325mg per patient preference and re-dose [id number] within 4 hours, if needed. Patient should [...] # 60 tablet, 0 Refills, [facility], 145, cm, 08/11/21 8:46:00 EDT, Height, 69.5, [...] 8.5 each, Refills 0, Route to Pharmacy Electronically,[id number], [facility], 145, cm, 05/26/21 11:48:00 EST, Height Start Date: 06/19/21 Status: Ordered Unisom 25 mg oral tablet See Instructions, take 1 tablet by mouth at bedtime, # 30 tablet, 1 Refills, Maintenance, 04/19/21 12:03:00 EST, [facility]/pharmacy #[id number], Partial fill upon patient request if the [...] Care Team Personnel Name: Deepika Ngo Address: [address] [place] [address]
--- OUTSIDE RECORDS SUMMARY | 2022-12-19 20:55 | XMS_ITS | Continuity of Care Document ---
Author Name Unknown Organization [facility] Address [address] [place] [address]- Care Team Providers Care Diesel Engine Erector Name Role Phone Passer Deepika ORELLANA Primary Care Physician [place] [facility] [place] 06/23/21 - 09/10/[address] [address]- Attending Physician: Not on Staff, Attending MD Allergies, Adverse Reactions, Alerts No Known Allergies Immunizations Given and Recorded Vaccine Date Status Refusal Reason tetanus/diphtheria/pertussis, acel(Tdap) 05/23/21 Given tetanus/diphtheria/pertussis, acel(Tdap) 12/28/14 Given Medications acetaminophen 325 mg oral tablet 650 mg, By Mouth, Every 4 hours, PRN, (1-3), may give 325mg per patient preference and re-dose [id number] within 4 hours, if needed. Patient should [...] # 60 tablet, 0 Refills, [facility], 145, cm, 08/11/21 8:46:00 EDT, Height, 69.5, [...] 0 Refills, Maintenance, 08/11/21 5:13:00 EDT, Tablet, [facility]/pharmacy #[id number], Partial fill upon patient request if the prescription is for a schedule II opioid drug., 145, cm, 08/10/21 1... Start Date: 08/11/21 Status: Ordered Multivitamins with Folic Acid 1 mg oral tablet 1 tablet, By Mouth, Daily, # 90 tablet, 2 Refills, Maintenance, 01/02/21 11:05:00 EDT, [facility]/pharmacy#[id number], Partial fill upon patient request if the prescription is for a schedule II opioid drug., 1 tablet By Mouth Daily, 145, cm, 01/02/21 10:26:00 EDT... Start Date: 01/02/21 Status: Ordered ProAir HFA 90 mcg/inh inhalation aerosol with adapter 1-2 PUFFS, Inhalation, Every 6 hours, PRN, # 8.5 each, Refills 0, Route to Pharmacy Electronically,[id number], [facility], 145, cm, 05/26/21 11:48:00 EST, Height Start Date: 06/19/21 Status: Ordered Unisom 25 mg oral tablet See Instructions, take 1 tablet by mouth at bedtime, # 30 tablet, 1 Refills, Maintenance, 12/29/21 12:03:00 JAUN, [facility]/pharmacy #[id number], Partial fill upon patient request if the [...]
--- OUTSIDE RECORDS SUMMARY | 2022-12-19 20:55 | XMS_ITS | Continuity of Care Document ---
Author Name Unknown Organization [facility] Address [address] [place] [phone]- Care Team Providers Care Environmental Sampler Name Role Phone Passer Deepika ORELLANA Primary Care Physician [place] [facility] [place] 04/12/22 - 05/12/22 [facility] [address] [place] [id number] Attending Physician: Sissy Loving Admitting Physician: AdmSissy edmondson Referring Physician: Admtr, Ar8 Allergies, Adverse Reactions, Alerts No Known Allergies Immunizations Given and Recorded Vaccine Date Status Refusal Reason tetanus/diphtheria/pertussis, acel(Tdap) 05/23/21 Given tetanus/diphtheria/pertussis, acel(Tdap) 12/28/14 Given Measles/Mumps/Rubella Virus Vaccine 03/27/17 Recor ded hepatitis B pediatric vaccine 03/27/17 Recorded Medications acetaminophen 325 mg oral tablet 650 mg, By Mouth, Every 4 hours, PRN, (1-3), may give 325mg per patient preference and re-dose [id number] within 4 hours, if needed. Patient should [...] tablet, 3 Refills, Maintenance,03/21/22 11:20:00 EST, Tablet, [facility]/pharmacy #[id number], Partial fill upon patient request if the prescription is for a schedule II opioid drug., 145, cm, 11... Start Date: 03/21/22 Status: Ordered Heartburn Relief 10 mg oral tablet 1 tablet, By Mouth, 2 times a day, PRN NEEDED FOR DYSPEPSIA, # 60 tablet, 0 Refills, [facility] ST[facility] 53928, 145, cm, 08/11/21 8:46:00 EDT, Height, 69.5, kg, 08/09/21 8:30:00 EDT, Dry Weight Start Date: 08/22/21 Status: Ordered hydrOXYzine hydrochloride 25 mg oral tablet 1 tablet = 25 mg, By Mouth, Every 6 hours, PRN for anxiety, # 60 tablet, 2 Refills, Maintenance, 03/21/22 11:20:00 EST, Tablet, [facility]/pharmacy #[id number], Partial fill upon patient [...] 03/21/22 11:19:00 EST, Route to Pharmacy Electronically, [facility]/pharmacy #[id number], Partial fill upon patien... Start Date: 03/21/22 Status: Ordered ondansetron 4 mg oral tablet, disintegrating = 4 mg, By Mouth, Every 6 hours, PRN Nausea & Vomiting, # 20 tablet, 0 Refills, Maintenance, 08/11/21 5:13:00 EDT, Tablet, [facility]/pharmacy #[id number], Partial fill upon patient request if the prescription is for a schedule II opioid drug., 145, cm, 08/10/21 1... Start Date: 08/11/21 Status: Ordered permethrin 1% topical lotion 1 application, Topically, Once, Apply to freshly washed, slightly dried hair x 10 minutes, then rinse. Repeat in 7 days, # 240 mL, 1 Refills, Soft Stop, 05/08/22 13:38:00 EST, Lotion, [facility]/pharmacy #[id number], Partial fill upon patient request if the prescr... Start Date: 05/08/22 Status: Ordered Multivitamins with Folic Acid 1 mg oral tablet 1 tablet, By Mouth, Daily, # 90 tablet, 2 Refills, Maintenance, 01/02/21 11:05:00 EDT, [facility]/pharmacy#[id number], Partial fill upon patient request if the prescription is for a schedule II opioid drug., 1 tablet By Mouth Daily, 145, cm, 01/02/21 10:26:00 EDT... Start Date: 01/02/21 Status: Ordered ProAir HFA 90 mcg/inh inhalation aerosol with adapter 1-2 PUFFS, Inhalation, Every 6 hours, PRN, # 8.5 each, Refills 0, Route to Pharmacy Electronically,[id number], [facility] STORE 41585, 145, cm, 05/26/21 11:48:00 EST, Height Start Date: 06/19/21 Status: Ordered Unisom 25 mg oral tablet See Instructions, take 1 tablet by mouth at bedtime, # 30 tablet, 1 Refills, Maintenance, 04/19/21 12:03:00 EST, [facility]/pharmacy #[id number], Partial fill upon patient [...] Professional Member Role: PCP Address: Address: [address] [place] [address]- Care Team Related Persons Name: DENISE TINAJERO Address: [address] [place] [address] Name: JIM LEE Address: [id number] Address: home [address] [place] [address] Name: JIM LEE Address: [place] [address] [place] [address]
--- OUTSIDE RECORDS SUMMARY | 2022-12-19 20:55 | XMS_ITS | Continuity of Care Document ---
Author Name Unknown Organization [facility] Address [address] [place] [address]- Care Team Providers Care Clinical Esthetician Name Role Phone Passer Deepika ORELLANA Primary Care Physician Encounter [facility] [place] Date(s): 06/18/19 - 08/09/[address] [address]- [facility] Attending Physician: Not on Staff, Attending MD Allergies, Adverse Reactions, Alerts Substance Reaction Severity Status NKA Active Immunizations Given and Recorded Vaccine Date Status Refusal Reason tetanus/diphtheria/pertussis, acel(Tdap) 12/28/14 Given Medications albuterol 90 mcg/inh inhalation powder 1 puffs, Inhalation, Every 4 hours, PRN as needed, for asthma, # 1 each, 11 Refills, Maintenance, 07/07/19 13:02:00 EDT, Powder, [id number], 1 puffs Inhalation Every 4 hours,PRN:as needed,Instr:for asthma, 146.7, cm, 06/02/18 10:38:00 EST, Height Start Date: 07/07/19 Status: Ordered Samantha 0.35 mg oral tablet [...] loss, Compound Start Date: 12/31/17 Status: Ordered ferrous sulfate 325 mg oral tablet 1 tablet = 325 mg, By Mouth, Daily, # 30 tablet, 4 Refills, Maintenance, 01/10/15 13:58:42, 1 tablet By Mouth Daily,x30 days Start Date: 01/10/15 Stop Date: 06/09/15 Status: Ordered ibuprofen 800 mg oral tablet 1, tablet, By Mouth, 3 times a day, INSTR:FOR TOE PAIN AND HEADACHE, # 90 tablet, Refills 1, Tot. Refills 0, Acute, 07/09/19 14:25:00 EDT, Route to Pharmacy Electronically, [facility] 62092, 146.7, cm, 06/02/18 10:38:00 EST, Height Start Date: 07/09/19 Status: Ordered LaMICtal 25 mg oral tablet See Instructions, 1 tablet By Mouth Daily x 2 weeks , then 25/ 25 x 1 wk week then , then 50/50 x 1wk, # 120 tablet, Refills 5, Tot. Refills 5, Maintenance, 06/02/18 10:44:37 EST, Instructions Replace Required Details, Route to Pharmacy Electroni... Start Date: 06/02/18 Status: Ordered Lexapro 10 mg oral tablet 1 tablet = 10 mg, By Mouth, Daily, For depression, # 30 tablet, 0 Refills, Maintenance, 01/30/18 10:39:49 EDT, Tablet Start Date: 01/30/18 Status: Ordered Problem List Condition Effective Dates Status Health Status Inform ant Chronic headaches(Confirmed) Active Hyperemesis(Confirmed) 1 Active 1increased wgt loss since +pt Social History Social History Type Response Smoking Status Former smoker; Type: Cigarettes; Tobacco use times per day: 2-3 PER DAY; Started at age: 14; Stopped at age: 33; entered on: 12/31/17 Sex
--- OUTSIDE RECORDS SUMMARY | 2022-12-19 20:55 | XMS_ITS | Continuity of Care Document ---
Author Name Unknown Organization [facility] Address [address] [place] [address]- Care Team Providers Care Meat Stocker Name Role Phone Passer Deepika ORELLANA Primary Care Physician Encounter [facility] Date(s): 01/19/20 - 02/18/20 [facility] [address] [place] [address]- [facility] Allergies, Adverse Reactions, Alerts Substance Reaction Severity [...] 08/25/19 10:32:00 EDT, Route to Pharmacy Electronically, [facility]/pharmacy #[id number], 146.7, cm, 06/02/18 10:38:00 EST, Height Start Date: 08/25/19 Status: Ordered mirtazapine 15 mg oral tablet 1 tablet = 15 mg, By Mouth, Daily at bedtime, for sleep and appetite, # 30 tablet, 2 Refills, Maintenance, 01/20/20 9:05:00 EDT, Tablet, [facility]/pharmacy #[id number], 146.7, cm, 06/02/18 10:38:00 [...]
--- OUTSIDE RECORDS SUMMARY | 2022-12-19 20:55 | XMS_ITS | Continuity of Care Document ---
Author Name Unknown Organization [facility] Address [address] [place] [address]- Care Team Providers Care Central Lab Technician Name Role Phone Deepika Ngo Primary Care Physician [place] [facility] [place]/01[place] - 12/22/[address] [address]- Attending Physician: Not on Staff, Attending MD Referring Physician: Deepika Ngo Allergies, Adverse Reactions, Alerts No Known Allergies Immunizations Given and Recorded Vaccine Date Status Refusal Reason tetanus/diphtheria/pertussis, acel(Tdap) 05/23/21 Given tetanus/diphtheria/pertussis, acel(Tdap) 12/28/14 Given Medications acetaminophen 325 mg oral tablet 650 mg, By Mouth, Every 4 hours, PRN, (1-3), may give 325mg per patient preference and re-dose [id number] within 4 hours, if needed. Patient should [...] # 60 tablet, 0 Refills, [facility], 145, cm, 08/11/21 8:46:00 EDT, Height, 69.5, [...] 0 Refills, Maintenance, 08/11/21 5:13:00 EDT, Tablet, [facility]/pharmacy #[id number], Partial fill upon patient request if the prescription is for a schedule II opioid drug., 145, cm, 08/10/21 1... Start Date: 08/11/21 Status: Ordered Multivitamins with Folic Acid 1 mg oral tablet 1 tablet, By Mouth, Daily, # 90 tablet, 2 Refills, Maintenance, 01/02/21 11:05:00 EDT, [facility]/pharmacy#[id number], Partial fill upon patient request if the prescription is for a schedule II opioid drug., 1 tablet By Mouth Daily, 145, cm, 01/02/21 10:26:00 EDT... Start Date: 01/02/21 Status: Ordered ProAir HFA 90 mcg/inh inhalation aerosol with adapter 1-2 PUFFS, Inhalation, Every 6 hours, PRN, # 8.5 each, Refills 0, Route to Pharmacy Electronically,[id number], [facility], 145, cm, 05/26/21 11:48:00 EST, Height Start Date: 06/19/21 Status: Ordered Unisom 25 mg oral tablet See Instructions, take 1 tablet by mouth at bedtime, # 30 tablet, 1 Refills, Maintenance, 04/19/21 12:03:00 EST, [facility]/pharmacy #[id number], Partial fill upon patient request if [...] Care Team Personnel Name: Deepika Ngo Address: [address] [place] [address]
--- OUTSIDE RECORDS SUMMARY | 2022-12-19 20:55 | XMS_ITS | Continuity of Care Document ---
Author Name Unknown Organization [facility] Address [address] [place] [address]- Care Team Providers Care Residential Team Leader Name Role Phone Passer Deepika ORELLANA Primary Care Physician En[facility] [place] Date(s): 08/04/21 - 09/20/[address] [address] Attending Physician: Zhao Jacobsen MD Referring Physician: Roseline Garland MD Allergies, Adverse Reactions, Alerts No Known Allergies Immunizations Given and Recorded Vaccine Date Status Refusal Reason tetanus/diphtheria/pertussis, acel(Tdap) 05/23/21 Given tetanus/diphtheria/pertussis, acel(Tdap) 12/28/14 Given Medications acetaminophen 325 mg oral tablet 650 mg, By Mouth, Every 4 hours, PRN, (1-3), may give 325mg per patient preference and re-dose [id number] within 4 hours, if needed. Patient should [...] # 60 tablet, 0 Refills, [facility], 145, cm, 08/11/21 8:46:00 EDT, Height, 69.5, [...] 0 Refills, Maintenance, 08/11/21 5:13:00 EDT, Tablet, [facility]/pharmacy #[id number], Partial fill upon patient request if the prescription is for a schedule II opioid drug., 145, cm, 08/10/21 1... Start Date: 08/11/21 Status: Ordered Multivitamins with Folic Acid 1 mg oral tablet 1 tablet, By Mouth, Daily, # 90 tablet, 2 Refills, Maintenance, 01/02/21 11:05:00 EDT, [facility]/pharmacy#[id number], Partial fill upon patient request if the prescription is for a schedule II opioid drug., 1 tablet By Mouth Daily, 145, cm, 01/02/21 10:26:00 EDT... Start Date: 01/02/21 Status: Ordered ProAir HFA 90 mcg/inh inhalation aerosol with adapter 1-2 PUFFS, Inhalation, Every 6 hours, PRN, # 8.5 each, Refills 0, Route to Pharmacy Electronically,[id number], [facility], 145, cm, 05/26/21 11:48:00 EST, Height Start Date: 06/19/21 Status: Ordered Unisom 25 mg oral tablet See Instructions, take 1 tablet by mouth at bedtime, # 30 tablet, 1 Refills, Maintenance, 04/19/21 12:03:00 EST, [facility]/pharmacy #[id number], Partial fill upon patient request if [...]
--- OUTSIDE RECORDS SUMMARY | 2022-12-19 20:55 | XMS_ITS | Continuity of Care Document ---
Author Name Unknown Organization [facility] Address [address] [facility] [place], [address] Floor, [address] [place] [address]- Care Team Providers Care Retail Banking Manager Name Role Phone Deepika Ngo Primary Care Physician [place] [facility] [place] 08/25/19 - 09/30/19 [facility] [address], [address], [address] [place] [address]- [facility] Attending Physician: Floyd Drake NP Admitting Physician: Noelle CHOWDARY, Floyd Referring Physician: Deepika Ngo Allergies, Adverse Reactions, [...] 08/25/19 10:32:00 EDT, Route to Pharmacy Electronically, [facility]/pharmacy #[id number], 146.7, cm, 06/02/18 [...]
--- OUTSIDE RECORDS SUMMARY | 2022-12-19 20:55 | XMS_ITS | Continuity of Care Document ---
Author Name Unknown Organization [facility] Address [address] [place] [address]- Care Team Providers Care Computed Tomography Scanner Operator Name Role Phone Deepika Ngo Primary Care Physician Encounter [facility] [place] Date(s): 10/03/21 - 10/10/21 [facility] [address] [place] [address]- Encounter Diagnosis Viral URI(Discharge Diagnosis) - 10/03/21 Attending Physician: Not on Staff, Attending MD Referring Physician: Deepika Ngo Allergies, Adverse Reactions, Alerts No Known Allergies Immunizations Given and Recorded Vaccine Date Status Refusal Reason tetanus/diphtheria/pertussis, acel(Tdap) 05/23/21 Given tetanus/diphtheria/pertussis, acel(Tdap) 12/28/14 Given Medications acetaminophen 325 mg oral tablet 650 mg, By Mouth, Every 4 hours, PRN, (1-3), may give 325mg per patient preference and re-dose [id number] within 4 hours, if needed. Patient should [...] # 60 tablet, 0 Refills, [facility], 145, cm, 08/11/21 8:46:00 EDT, Height, 69.5, [...] 0 Refills, Maintenance, 08/11/21 5:13:00 EDT, Tablet, [facility]/pharmacy #[id number], Partial fill upon patient request if the prescription is for a schedule II opioid drug., 145, cm, 08/10/21 1... Start Date: 08/11/21 Status: Ordered Multivitamins with Folic Acid 1 mg oral tablet 1 tablet, By Mouth, Daily, # 90 tablet, 2 Refills, Maintenance, 01/02/21 11:05:00 EDT, [facility]/pharmacy#[id number], Partial fill upon patient request if the prescription is for a schedule II opioid drug., 1 tablet By Mouth Daily, 145, cm, 01/02/21 10:26:00 EDT... Start Date: 01/02/21 Status: Ordered ProAir HFA 90 mcg/inh inhalation aerosol with adapter 1-2 PUFFS, Inhalation, Every 6 hours, PRN, # 8.5 each, Refills 0, Route to Pharmacy Electronically,[id number], [facility], 145, cm, 05/26/21 11:48:00 EST, Height Start Date: 06/19/21 Status: Ordered Unisom 25 mg oral tablet See Instructions, take 1 tablet by mouth at bedtime, # 30 tablet, 1 Refills, Maintenance, 04/19/21 12:03:00 EST, [facility]/pharmacy #[id number], Partial fill upon patient request if the prescription is for a schedule II opioid drug., 145, cm, 03/28/21 12:21:00 ES... Start Date: 04/19/21 Status: Ordered Problem List Condition Effective Dates Status Health Status Inform ant Asthma(Confirmed) Active Chronic headaches(Confirmed) Active GERD (gastroesophageal reflu x disease)(Confirmed) Active History of varicella vaccination(Confirmed) Active Obese class I(Confirmed) Active Post traumatic stress disord er (PTSD)(Confirmed) Active Diagnosis Diagnosis Type Effective Dates Health Status Clini yousif Service Informant Viral URI Discharge Diagnosis 10/03/21 Social History Social History Type Response Smoking Status Former smoker, quit more than 30 days ago entered on: 04/11/20 Sex
--- OUTSIDE RECORDS SUMMARY | 2022-12-19 20:55 | XMS_ITS | Continuity of Care Document ---
Author Name Unknown Organization [facility] Address [address] [place] [address]- Care Team Providers Care Contact Lens Lathe Operator Name Role Phone Passer Deepika ORELLANA Primary Care Physician Encounter [facility] [place] Date(s): 01/01/22 - 01/31/22 [facility] [address] [place] [address]- Attending Physician: Sissy Loving Admitting Physician: Sissy Loving Referring Physician: AdmtrSissy Allergies, Adverse Reactions, Alerts No Known Allergies Immunizations Given and Recorded Vaccine Date Status Refusal Reason tetanus/diphtheria/pertussis, acel(Tdap) 05/23/21 Given tetanus/diphtheria/pertussis, acel(Tdap) 12/28/14 Given Medications acetaminophen 325 mg oral tablet 650 mg, By Mouth, Every 4 hours, PRN, (1-3), may give 325mg per patient preference and re-dose [id number] within 4 hours, if needed. Patient should [...] # 60 tablet, 0 Refills, [facility], 145, cm, 08/11/21 8:46:00 EDT, Height, 69.5, [...] 0 Refills, Maintenance, 08/11/21 5:13:00 EDT, Tablet, [facility]/pharmacy #[id number], Partial fill upon patient request if [...] 8.5 each, Refills 0, Route to Pharmacy Electronically,[id number], [facility], 145, cm, 05/26/21 11:48:00 EST, Height Start Date: 06/19/21 Status: Ordered Unisom 25 mg oral tablet See Instructions, take 1 tablet by mouth at bedtime, # 30 tablet, 1 Refills, Maintenance, 04/19/21 12:03:00 EST, [facility]/pharmacy #7611, Partial fill upon patient request if the [...] information Personnel Name: Deepika Ngo Address: Address: [address] [place] [address]
--- OUTSIDE RECORDS SUMMARY | 2022-12-19 20:55 | XMS_ITS | Continuity of Care Document ---
Author Name Unknown Organization [facility] Address [address] [place] [address]- Care Team Providers Care Floral Designer Salesperson Name Role Phone Passer Deepika ORELLANA Primary Care Physician Encounter [facility] [place] Date(s): 08/10/21 - 10/22/[address] [address]- Attending Physician: Not on Staff, Attending MD Allergies, Adverse Reactions, Alerts No Known Allergies Immunizations Given and Recorded Vaccine Date Status Refusal Reason tetanus/diphtheria/pertussis, acel(Tdap) 05/23/21 Given tetanus/diphtheria/pertussis, acel(Tdap) 12/28/14 Given Medications acetaminophen 325 mg oral tablet 650 mg, By Mouth, Every 4 hours, PRN, (1-3), may give 325mg per patient preference and re-dose [id number] within 4 hours, if needed. Patient should [...] # 60 tablet, 0 Refills, [facility], 145, cm, 08/11/21 8:46:00 EDT, Height, 69.5, [...] 0 Refills, Maintenance, 08/11/21 5:13:00 EDT, Tablet, [facility]/pharmacy #[id number], Partial fill upon patient request if the prescription is for a schedule II opioid drug., 145, cm, 08/10/21 1... Start Date: 08/11/21 Status: Ordered Multivitamins with Folic Acid 1 mg oral tablet 1 tablet, By Mouth, Daily, # 90 tablet, 2 Refills, Maintenance, 01/02/21 11:05:00 EDT, [facility]/pharmacy#[id number], Partial fill upon patient request if the prescription is for a schedule II opioid drug., 1 tablet By Mouth Daily, 145, cm, 01/02/21 10:26:00 EDT... Start Date: 01/02/21 Status: Ordered ProAir HFA 90 mcg/inh inhalation aerosol with adapter 1-2 PUFFS, Inhalation, Every 6 hours, PRN, # 8.5 each, Refills 0, Route to Pharmacy Electronically,[id number], [facility], 145, cm, 05/26/21 11:48:00 EST, Height Start Date: 06/19/21 Status: Ordered Unisom 25 mg oral tablet See Instructions, take 1 tablet by mouth at bedtime, # 30 tablet, 1 Refills, Maintenance, 04/19/21 12:03:00 JAUN, [facility]/pharmacy #[id number], Partial fill upon patient request if the [...]
--- OUTSIDE RECORDS SUMMARY | 2022-12-19 20:55 | XMS_ITS | Continuity of Care Document ---
Author Name Unknown Organization [facility] Address [address] [place] [address]- Care Team Providers Care Dress Shoe Inspector Name Role Phone Passer Deepika ORELLANA Primary Care Physician Encounter [facility] [place] Date(s): 09/25/21 - 10/26/[address] [address] Attending Physician: Not on Staff, Attending MD Allergies, Adverse Reactions, Alerts No Known Allergies Immunizations Given and Recorded Vaccine Date Status Refusal Reason tetanus/diphtheria/pertussis, acel(Tdap) 05/23/21 Given tetanus/diphtheria/pertussis, acel(Tdap) 12/28/14 Given Medications acetaminophen 325 mg oral tablet 650 mg, By Mouth, Every 4 hours, PRN, (1-3), may give 325mg per patient preference and re-dose [id number] within 4 hours, if needed. Patient should [...] # 60 tablet, 0 Refills, [facility], 145, cm, 08/11/21 8:46:00 EDT, Height, 69.5, [...] 0 Refills, Maintenance, 08/11/21 5:13:00 EDT, Tablet, [facility]/pharmacy #[id number], Partial fill upon patient request if the prescription is for a schedule II opioid drug., 145, cm, 08/10/21 1... Start Date: 08/11/21 Status: Ordered Multivitamins with Folic Acid 1 mg oral tablet 1 tablet, By Mouth, Daily, # 90 tablet, 2 Refills, Maintenance, 01/02/21 11:05:00 EDT, [facility]/pharmacy#[id number], Partial fill upon patient request if the prescription is for a schedule II opioid drug., 1 tablet By Mouth Daily, 145, cm, 01/02/21 10:26:00 EDT... Start Date: 01/02/21 Status: Ordered ProAir HFA 90 mcg/inh inhalation aerosol with adapter 1-2 PUFFS, Inhalation, Every 6 hours, PRN, # 8.5 each, Refills 0, Route to Pharmacy Electronically,[id number], [facility], 145, cm, 05/26/21 11:48:00 EST, Height Start Date: 06/19/21 Status: Ordered Unisom 25 mg oral tablet See Instructions, take 1 tablet by mouth at bedtime, # 30 tablet, 1 Refills, Maintenance, 04/19/21 12:03:00 JAUN, [facility]/pharmacy #[id number], Partial fill upon patient request if the [...]
--- OUTSIDE RECORDS SUMMARY | 2022-12-19 20:55 | XMS_ITS | Continuity of Care Document ---
Author Name Unknown Organization [facility] Address [address] [place] [address]- Care Team Providers Care Hides Inspector Name Role Phone Passer Deepika ORELLANA Primary Care Physician Encounter [facility] [place] Date(s): 07/14/19 - 07/24/[address] [address]- [facility] Attending Physician: Sissy Loving Admitting Physician: AdmSissy edmondson Referring Physician: AdmtrSissy Allergies, Adverse Reactions, Alerts Substance Reaction Severity [...] 07/09/19 14:25:00 EDT, Route to Pharmacy Electronically, [id number], 146.7, cm, 06/02/18 10:38:00 EST, Height Start [...]
--- OUTSIDE RECORDS SUMMARY | 2022-12-19 20:55 | XMS_ITS | Continuity of Care Document ---
Author Name Unknown Organization [facility] Address [address] [place] [address]- Care Team Providers Care Auto Body Repair Teacher Name Role Phone Passer Deepika ORELLANA Primary Care Physician Encounter [facility] [place] Date(s): 05/18/22 - 06/17/22 [facility]/[address] [address]- Attending Physician: Sissy Loving Admitting Physician: Sissy [...] give 325mg per patient preference and re-dose [id number] within 4 hours, if needed. Patient should [...] tablet, 3 Refills, Maintenance,03/21/22 11:20:00 EST, Tablet, [facility]/pharmacy #[id number], Partial fill upon patient request if the prescription is for a schedule II opioid drug., 145, cm, 11... Start Date: 03/21/22 Status: Ordered Heartburn Relief 10 mg oral tablet 1 tablet, By Mouth, 2 times a day, PRN NEEDED FOR DYSPEPSIA, # 60 tablet, 0 Refills, [facility] STORE 49456, 145, cm, 08/11/21 8:46:00 EDT, Height, 69.5, kg, 08/09/21 8:30:00 EDT, Dry Weight Start Date: 08/22/21 Status: Ordered hydrOXYzine hydrochloride 25 mg oral tablet 1 tablet = 25 mg, By Mouth, Every 6 hours, PRN for anxiety, # 60 tablet, 2 Refills, Maintenance, 03/21/22 11:20:00 EST, Tablet, [facility]/pharmacy #[id number], Partial fill upon patient request if the prescription is for a schedule II opioid drug., 145, cm, 03/21... Start Date: 03/21/22 Status: Ordered ibuprofen 800 mg oral tablet 800 mg, 1, tablet, By Mouth, Every 8 hours, PRN, with food not to exceed 3200 mg/day, # 50 tablet, Refills 3, Tot. Refills 3, Maintenance, Headache, 03/21/22 11:19:00 EST, Route to Pharmacy Electronically, [facility]/pharmacy #[id number], Partial fill upon patien... Start Date: 03/21/22 Status: Ordered ondansetron 4 mg oral tablet, disintegrating = 4 mg, By Mouth, Every 6 hours, PRN Nausea & Vomiting, # 20 tablet, 0 Refills, Maintenance, 08/11/21 5:13:00 EDT, Tablet, [facility]/pharmacy #[id number], Partial fill upon patient request if the prescription is for a schedule II opioid drug., 145, cm, 08/10/21 1... Start Date: 08/11/21 Status: Ordered permethrin 1% topical lotion 1 application, Topically, Once, Apply to freshly washed, slightly dried hair x 10 minutes, then rinse. Repeat in 7 days, # 240 mL, 1 Refills, Soft Stop, 05/08/22 13:38:00 EST, Lotion, [facility]/pharmacy #[id number], Partial fill upon patient request if the prescr... Start Date: 05/08/22 Status: Ordered Multivitamins with Folic Acid 1 mg oral tablet 1 tablet, By Mouth, Daily, # 90 tablet, 2 Refills, Maintenance, 01/02/21 11:05:00 EDT, [facility]/pharmacy#[id number], Partial fill upon patient request if the prescription is for a schedule II opioid drug., 1 tablet By Mouth Daily, 145, cm, 01/02/21 10:26:00 EDT... Start Date: 01/02/21 Status: Ordered ProAir HFA 90 mcg/inh inhalation aerosol with adapter 1-2 PUFFS, Inhalation, Every 6 hours, PRN, # 8.5 each, Refills 0, Route to Pharmacy Electronically,[id number], [facility] STORE 64363, 145, cm, 05/26/21 11:48:00 EST, Height Start Date: 06/19/21 Status: Ordered Unisom 25 mg oral tablet See Instructions, take 1 tablet by mouth at bedtime, # 30 tablet, 1 Refills, Maintenance, 04/19/21 12:03:00 EST, [facility]/pharmacy #[id number], Partial fill upon patient request if [...] Associate Professional Member Role: PCP Address: Address: [address] [place] [address] Care Team Related Persons Name: DENISE TINAJERO Address: home [address] [place] [address] Name: JIM LEE Address: [address] [address] Name: JIM LEE Address: [address] Address: [address] [address]
--- OUTSIDE RECORDS SUMMARY | 2022-12-19 20:55 | XMS_ITS | Continuity of Care Document ---
Author Name Unknown Organization [facility] Address [address] [facility], [address] Floor, [address] [place] [address]- Care Team Providers Care Deputy Director Name Role Phone Passer Deepika ORELLANA Primary Care Physician Encounter [facility] [place] Date(s): 09/09/19 - 01/07/20 [facility] [address], [address], [address] [place] [address]- [facility] Attending Physician: Aicha Penny MD Admitting Physician: Aicha Penny MD Allergies, Adverse Reactions, Alerts Substance Reaction [...] 08/25/19 10:32:00 EDT, Route to Pharmacy Electronically, [facility]/pharmacy #[id number], 146.7, cm, 06/02/18 [...]
--- OUTSIDE RECORDS SUMMARY | 2022-12-19 20:55 | XMS_ITS | Continuity of Care Document ---
Author Name Unknown Organization [facility] Address [address] [place] [address]- Care Team Providers Care Dna Analyst Name Role Phone Passer Deepika ORELLANA Primary Care Physician Encounter [facility] [place] Date(s): 04/19/21 - 05/19/[address] [address]- Allergies, Adverse Reactions, Alerts No Known Allergies Immunizations Given and Recorded Vaccine Date Status Refusal Reason tetanus/diphtheria/pertussis, acel(Tdap) 12/28/14 Given Medications albuterol 90 mcg/inh inhalation powder 1 puffs, Inhalation, Every 4 hours, PRN as needed, for asthma, # 1 each, 2 Refills, Maintenance, 05/31/20 11:25:00 EST, Powder, [facility]/pharmacy #[id number], Duplicate rx-Original rx sent 08/25/19. Remaining refills sent., 1 puffs Inhalation Every 4 hours,PRN:as... Start Date: 05/31/20 Status: Ordered aspirin 81 mg oral delayed release tablet See Instructions, 2 tablet By Mouth Daily at bedtime, # 60 tablet, Refills 8, Tot. Refills 8, Maintenance, 02/07/21 10:30:00 EDT, Instructions Replace Required Details, Route to Pharmacy Electronically, [facility]/pharmacy #[id number], Partial fill upon patient re... Start [...] Ordered ProAir HFA 90 mcg/inh inhalation aerosol See Instructions, PRN as needed for wheezing, 1-2 puffs Inhalation up to every 6 hours as needed for asthma symptoms, # 18 Gm, 0 Refills, Maintenance, 04/25/21 9:46:00 EST, Aerosol, [id number], Partial fill upon patient request if the prescrip... Start Date: 04/25/21 Status: Ordered Unisom 25 mg oral tablet See Instructions, take 1 tablet by mouth at bedtime, # 30 tablet, 1 Refills, Maintenance, 04/19/21 12:03:00 EST, [id number], Partial fill upon patient request [...]
--- OUTSIDE RECORDS SUMMARY | 2022-12-19 20:55 | XMS_ITS | Continuity of Care Document ---
Author Name Unknown Organization [facility] Address Unknown Care Team Providers Care Forming Machine Adjuster Name Role Phone Deepika Ngo Primary Care Physician Encounter [facility] [place] Date(s): 09/11/21 - 10/15/21 [facility] Attending Physician: Deepika Ngo Admitting Physician: Deepika Ngo Allergies, Adverse Reactions, Alerts No Known Allergies Immunizations Given and Recorded Vaccine Date Status Refusal Reason tetanus/diphtheria/pertussis, acel(Tdap) 05/23/21 Given tetanus/diphtheria/pertussis, acel(Tdap) 12/28/14 Given Medications acetaminophen 325 mg oral tablet 650 mg, By Mouth, Every 4 hours, PRN, (1-3), may give 325mg per patient preference and re-dose [id number] within 4 hours, if needed. Patient should [...] # 60 tablet, 0 Refills, [facility], 145, cm, 08/11/21 8:46:00 EDT, Height, 69.5, [...] 0 Refills, Maintenance, 08/11/21 5:13:00 EDT, Tablet, [facility]/pharmacy #[id number], Partial fill upon patient request if the prescription is for a schedule II opioid drug., 145, cm, 08/10/21 1... Start Date: 08/11/21 Status: Ordered Multivitamins with Folic Acid 1 mg oral tablet 1 tablet, By Mouth, Daily, # 90 tablet, 2 Refills, Maintenance, 01/02/21 11:05:00 EDT, [facility]/pharmacy#[id number], Partial fill upon patient request if the prescription is for a schedule II opioid drug., 1 tablet By Mouth Daily, 145, cm, 01/02/21 10:26:00 EDT... Start Date: 01/02/21 Status: Ordered ProAir HFA 90 mcg/inh inhalation aerosol with adapter 1-2 PUFFS, Inhalation, Every 6 hours, PRN, # 8.5 each, Refills 0, Route to Pharmacy Electronically,[id number], [facility], 145, cm, 05/26/21 11:48:00 EST, Height Start [...]
--- OUTSIDE RECORDS SUMMARY | 2022-12-19 20:55 | XMS_ITS | Continuity of Care Document ---
Author Name Unknown Organization [facility] Address Unknown Care Team Providers Care Director Of Family Service Center Name Role Phone Passer Deepika ORELLANA [id number] Date(s): 05/26/21 - 06/25/21 [facility] Attending Physician: Sissy [...] Replace Required Details, Route to Pharmacy Electronically, [facility]/pharmacy #[id number], Partial fill upon patient re... Start Date: [...] 1 Refills, Maintenance, 06/06/21 11:41:00 EST, Tablet, [id number], Partial fill upon patient request if the prescriptionis for a schedule II opioid drug., 145, cm, ... Start Date: 06/06/21 Status: Ordered Multivitamins with Folic Acid 1 mg oral tablet 1 tablet, By Mouth, Daily, # 90 tablet, 2 Refills, Maintenance, 01/02/21 11:05:00 EDT, [facility]/pharmacy#[id number], Partial fill upon patient request if the prescription is for a schedule II opioid drug., 1 tablet By Mouth Daily, 145, cm, 01/02/21 10:26:00 EDT... Start Date: 01/02/21 Status: Ordered ProAir HFA 90 mcg/inh inhalation aerosol with adapter 1-2 PUFFS, Inhalation, Every 6 hours, PRN, # 8.5 each, Refills 0, Route to Pharmacy Electronically,[id number], [facility] STORE 34052, 145, cm, 05/26/21 11:48:00 EST, Height Start Date: 06/19/21 Status: Ordered Unisom 25 mg oral tablet See Instructions, take 1 tablet by mouth at bedtime, # 30 tablet, 1 Refills, Maintenance, 04/19/21 12:03:00 EST, [facility]/pharmacy #[id number], Partial fill upon patient [...]
--- OUTSIDE RECORDS SUMMARY | 2022-12-19 20:55 | XMS_ITS | Continuity of Care Document ---
Author Name Unknown Organization [facility] Address Unknown Care Team Providers Care Sander Portable Machine Name Role Phone Deepika Ngo Primary Care Physician [id number] Date(s): 08/14/21 - 09/21/21 [facility] Attending Physician: Deepika Ngo Admitting Physician: Deepika Ngo Referring Physician: Deepika Ngo Allergies, Adverse Reactions, Alerts No Known Allergies Immunizations Given and Recorded Vaccine Date Status Refusal Reason tetanus/diphtheria/pertussis, acel(Tdap) 05/23/21 Given tetanus/diphtheria/pertussis, acel(Tdap) 12/28/14 Given Medications acetaminophen 325 mg oral tablet 650 mg, By Mouth, Every 4 hours, PRN, (1-3), may give 325mg per patient preference and re-dose [id number] within 4 hours, if needed. Patient should [...] # 60 tablet, 0 Refills, [facility], 145, cm, 08/11/21 8:46:00 EDT, Height, 69.5, [...] 8.5 each, Refills 0, Route to Pharmacy Electronically,[id number], [facility], 145, cm, 05/26/21 11:48:00 EST, Height Start Date: 06/19/21 Status: Ordered Unisom 25 mg oral tablet See Instructions, take 1 tablet by mouth at bedtime, # 30 tablet, 1 Refills, Maintenance, 04/19/21 12:03:00 EST, [facility]/pharmacy #[id number], Partial fill upon patient [...]
--- OUTSIDE RECORDS SUMMARY | 2022-12-19 20:55 | XMS_ITS | Continuity of Care Document ---
Author Name Unknown Organization [facility] Address [address] [place] [address]- Care Team Providers Care Gig Tender Name Role Phone Passer Deepika ORELLANA Primary Care Physician Encounter [facility] [place] Date(s): 07/11/21 - 08/10/[address] [address] Allergies, Adverse Reactions, Alerts No Known Allergies Immunizations Given and Recorded Vaccine Date Status Refusal Reason tetanus/diphtheria/pertussis, acel(Tdap) 05/23/21 Given tetanus/diphtheria/pertussis, acel(Tdap) 12/28/14 Given Medications aspirin 81 mg oral delayed release tablet See Instructions, 2 tablet By Mouth Daily at bedtime, # 60 tablet, Refills 8, Tot. Refills 8, Maintenance, 02/07/21 10:30:00 EDT, Instructions Replace Required Details, Route to Pharmacy Electronically, [facility]/pharmacy #[id number], Partial fill upon patient re... Start Date: [...] 1 Refills, Maintenance, 06/06/21 11:41:00 EST, Tablet, [facility]/pharmacy #[id number], Partial fill upon patient request if the prescriptionis for a schedule II opioid drug., 145, cm, ... Start Date: 06/06/21 Status: Ordered Multivitamins with Folic Acid 1 mg oral tablet 1 tablet, By Mouth, Daily, # 90 tablet, 2 Refills, Maintenance, 01/02/21 11:05:00 EDT, [facility]/pharmacy#[id number], Partial fill upon patient request if the prescription is for a schedule II opioid drug., 1 tablet By Mouth Daily, 145, cm, 01/02/21 10:26:00 EDT... Start Date: 01/02/21 Status: Ordered ProAir HFA 90 mcg/inh inhalation aerosol with adapter 1-2 PUFFS, Inhalation, Every 6 hours, PRN, # 8.5 each, Refills 0, Route to Pharmacy Electronically,[id number], [facility]ORE 63789, 145, cm, 05/26/21 11:48:00 EST, Height Start Date: 06/19/21 Status: Ordered Unisom 25 mg oral tablet See Instructions, take 1 tablet by mouth at bedtime, # 30 tablet, 1 Refills, Maintenance, 04/19/21 12:03:00 EST, [facility]/pharmacy #[id number], Partial fill upon [...]
--- OUTSIDE RECORDS SUMMARY | 2022-12-19 20:55 | XMS_ITS | Continuity of Care Document ---
Author Name Unknown Organization [facility] Address [address] [place] [address]- Care Team Providers Care Packaging Coordinator Name Role Phone Passer Deepika ORELLANA Primary Care Physician [place] [facility] [place] - 01/31/20 [facility] [address] [place] [address]- [facility] Allergies, Adverse Reactions, Alerts Substance Reaction Severity [...] 08/25/19 10:32:00 EDT, Route to Pharmacy Electronically, [facility]/pharmacy #[id number], 146.7, cm, 06/02/18 10:38:00 EST, Height Start Date: 08/25/19 Status: Ordered mirtazapine 15 mg oral tablet 1 tablet = 15 mg, By Mouth, Daily at bedtime, for sleep and appetite, # 30 tablet, 2 Refills, Maintenance, 01/20/20 9:05:00 EDT, Tablet, [facility]/pharmacy #[id number], 146.7, cm, 06/02/18 10:38:00 [...]
--- OUTSIDE RECORDS SUMMARY | 2022-12-19 20:55 | XMS_ITS | Continuity of Care Document ---
Author Name Unknown Organization [facility] Address Unknown Care Team Providers Care Clearing Distribution Clerk Name Role Phone Passer Deepika ORELLANA Primary Care Physician En[place] [facility] [place](s): 09/20/21 - 10/20/21 [facility] Allergies, Adverse Reactions, Alerts No Known Allergies Immunizations Given and Recorded Vaccine Date Status Refusal Reason tetanus/diphtheria/pertussis, acel(Tdap) 05/23/21 Given tetanus/diphtheria/pertussis, acel(Tdap) 12/28/14 Given Medications acetaminophen 325 mg oral tablet 650 mg, By Mouth, Every 4 hours, PRN, (1-3), may give 325mg per patient preference and re-dose [id number] within 4 hours, if needed. Patient should [...] # 60 tablet, 0 Refills, [facility], 145, cm, 08/11/21 8:46:00 EDT, Height, 69.5, [...] Refills, Maintenance, 01/02/21 11:05:00 EDT, [facility]/pharmacy#[id number], Partial fill upon patient request if the prescription is for a schedule II opioid drug., 1 tablet By Mouth Daily, 145, cm, 01/02/21 10:26:00 EDT... Start Date: 01/02/21 Status: Ordered ProAir HFA 90 mcg/inh inhalation aerosol with adapter 1-2 PUFFS, Inhalation, Every 6 hours, PRN, # 8.5 each, Refills 0, Route to Pharmacy Electronically,[id number], [facility] ST[facility] 77646, 145, cm, 05/26/21 11:48:00 EST, Height Start [...]
--- OUTSIDE RECORDS SUMMARY | 2022-12-19 20:55 | XMS_ITS | Continuity of Care Document ---
Author Name Unknown Organization [facility] Address [address] [place] [address]- Care Team Providers Care Assistant Grocery Store Manager Name Role Phone Deepika Ngo Primary Care Physician [place] [facility] [place] 05/22[place]22 - 09/19/22 [facility] [address] [address]- Attending Physician: Demond Solis MD Admitting Physician: Demond Solis MD Referring Physician: Deepika Ngo Allergies, Adverse [...] give 325mg per patient preference and re-dose [id number] within 4 hours, if needed. Patient should [...] tablet, 3 Refills, Maintenance,03/21/22 11:20:00 EST, Tablet, [facility]/pharmacy #[id number], Partial fill upon patient request if the prescription is for a schedule II opioid drug., 145, cm, 11... Start Date: 03/21/22 Status: Ordered Heartburn Relief 10 mg oral tablet 1 tablet, By Mouth, 2 times a day, PRN NEEDED FOR DYSPEPSIA, # 60 tablet, 0 Refills, [facility] 25228, 145, cm, 08/11/21 8:46:00 EDT, Height, 69.5, kg, 08/09/21 8:30:00 EDT, Dry Weight Start Date: 08/22/21 Status: Ordered hydrOXYzine hydrochloride 25 mg oral tablet 1 tablet = 25 mg, By Mouth, Every 6 hours, PRN for anxiety, # 60 tablet, 2 Refills, Maintenance, 03/21/22 11:20:00 EST, Tablet, [facility]/pharmacy [...] 03/21/22 11:19:00 EST, Route to Pharmacy Electronically, [facility]/pharmacy #[id number], Partial fill upon patien... Start Date: 03/21/22 Status: Ordered ondansetron 4 mg oral tablet, disintegrating = 4 mg, By Mouth, Every 6 hours, PRN Nausea & Vomiting, # 20 tablet, 0 Refills, Maintenance, 08/11/21 5:13:00 EDT, Tablet, [facility]/pharmacy #[id number], [...] Refills, Soft Stop, 05/08/22 13:38:00 EST, Lotion, [facility]/pharmacy #[id number], Partial [...] 8.5 each, Refills 0, Route to Pharmacy Electronically,[id number], [facility] STORE 40751, 145, cm, 05/26/21 11:48:00 EST, Height Start [...] Associate Professional Member Role: PCP Address: Address: [address] [place] [address]- Care Team Related Persons Name: LIORDENISE Address: home [address] [place] [address] Name: JIM LEE Address: [address] Address: home [address] [place] [address] Name: JIM LEE Address: [address] [place] [address]
--- OUTSIDE RECORDS SUMMARY | 2022-12-19 20:55 | XMS_ITS | Continuity of Care Document ---
Author Name Unknown Organization [facility] Address [address] [place] [address]- Care Team Providers Care Gas Meter Repair Supervisor Name Role Phone Passer Deepika ORELLANA Primary Care Physician Encounter [facility] [place] Date(s): 06/22/22 - 07/28/[address] [address] Attending Physician: Brittney Wang NP Admitting Physician: Brittney Wang NP Referring Physician: Brittney Wang NP Allergies, Adverse Reactions, Alerts No Known Allergies Immunizations Given and Recorded Vaccine Date Status Refusal Reason tetanus/diphtheria/pertussis, acel(Tdap) 05/23/21 Given tetanus/diphtheria/pertussis, acel(Tdap) 12/28/14 Given Measles/Mumps/Rubella Virus Vaccine 03/27/17 Recor ded hepatitis B pediatric vaccine 03/27/17 Recorded Medications acetaminophen 325 mg oral tablet 650 mg, By Mouth, Every 4 hours, PRN, (1-3), may give 325mg per patient preference and re-dose [id number] within 4 hours, if needed. Patient should [...] tablet, 3 Refills, Maintenance,03/21/22 11:20:00 EST, Tablet, [facility]/pharmacy #[id number], Partial fill upon patient request if the prescription is for a schedule II opioid drug., 145, cm, 11... Start Date: 03/21/22 Status: Ordered Heartburn Relief 10 mg oral tablet 1 tablet, By Mouth, 2 times a day, PRN NEEDED FOR DYSPEPSIA, # 60 tablet, 0 Refills, [facility]ORE 77811, 145, cm, 08/11/21 8:46:00 EDT, Height, 69.5, kg, 08/09/21 8:30:00 EDT, Dry Weight Start Date: 08/22/21 Status: Ordered hydrOXYzine hydrochloride 25 mg oral tablet 1 tablet = 25 mg, By Mouth, Every 6 hours, PRN for anxiety, # 60 tablet, 2 Refills, Maintenance, 03/21/22 11:20:00 EST, Tablet, [facility]/pharmacy #[id number], Partial fill upon patient [...] 03/21/22 11:19:00 EST, Route to Pharmacy Electronically, [facility]/pharmacy #[id number], Partial fill upon patien... Start Date: 03/21/22 Status: Ordered ondansetron 4 mg oral tablet, disintegrating = 4 mg, By Mouth, Every 6 hours, PRN Nausea & Vomiting, # 20 tablet, 0 Refills, Maintenance, 08/11/21 5:13:00 EDT, Tablet, [facility]/pharmacy #[id number], Partial fill upon patient request if the prescription is for a schedule II opioid drug., 145, cm, 08/10/21 1... Start Date: 08/11/21 Status: Ordered permethrin 1% topical lotion 1 application, Topically, Once, Apply to freshly washed, slightly dried hair x 10 minutes, then rinse. Repeat in 7 days, # 240 mL, 1 Refills, Soft Stop, 05/08/22 13:38:00 EST, Lotion, [facility]/pharmacy #[id number], Partial fill upon patient request if the prescr... Start Date: 05/08/22 Status: Ordered Multivitamins with Folic Acid 1 mg oral tablet 1 tablet, By Mouth, Daily, # 90 tablet, 2 Refills, Maintenance, 01/02/21 11:05:00 EDT, [facility]/pharmacy#2071, Partial fill upon patient request if the prescription is for a schedule II opioid drug., 1 tablet By Mouth Daily, 145, cm, 01/02/21 10:26:00 EDT... Start Date: 01/02/21 Status: Ordered ProAir HFA 90 mcg/inh inhalation aerosol with adapter 1-2 PUFFS, Inhalation, Every 6 hours, PRN, # 8.5 each, Refills 0, Route to Pharmacy Electronically,[id number], [facility] STORE 27807, 145, cm, 05/26/21 11:48:00 EST, Height Start Date: 06/19/21 Status: Ordered Unisom 25 mg oral tablet See Instructions, take 1 tablet by mouth at bedtime, # 30 tablet, 1 Refills, Maintenance, 04/19/21 12:03:00 EST, [facility]/pharmacy #[id number], Partial fill upon patient [...] Professional Member Role: PCP Address: Address: [address] [place] [address] Care Team Related Persons Name: DENISE TINAJERO Address: [address] [place] [address] Name: JIM LEE Address: [address] Address: [address] [address] Name: JIM LEE Address: [address] [address]
--- OUTSIDE RECORDS SUMMARY | 2022-12-19 20:55 | XMS_ITS | Continuity of Care Document ---
Author Name Unknown Organization [facility] Address [address] [place] [address]- Care Team Providers Care Supervisor Industrial Arts Education Name Role Phone Deepika Ngo Primary Care Physician Encounter [facility] Date(s): 08/25/19 - 09/01/19 [facility] [address] [place] [address]- [place] Attending Physician: Deepika Ngo Admitting Physician: Deepika [...] 10:32:00 EDT, Route to Pharmacy Electronically, [facility]/pharmacy #[id number], 146.7, cm, 06/02/18 10:38:00 EST, [...]
--- OUTSIDE RECORDS SUMMARY | 2022-12-19 20:55 | XMS_ITS | Continuity of Care Document ---
Author Name Unknown Organization [facility] Address [address] [place] [address]- Care Team Providers Care Graphics Programmer Name Role Phone Passer Deepika ORELLANA Primary Care Physician Encounter [facility] [place] Date(s): 02/09/21 - 03/16/[address] [address]- Attending Physician: Not on Staff, Attending MD Allergies, Adverse Reactions, Alerts Substance Reaction Severity Status NKA Active Immunizations Given and Recorded Vaccine Date Status Refusal Reason tetanus/diphtheria/pertussis, acel(Tdap) 12/28/14 Given Medications albuterol 90 mcg/inh inhalation powder 1 puffs, Inhalation, Every 4 hours, PRN as needed, for asthma, # 1 each, 2 Refills, Maintenance, 05/31/20 11:25:00 EST, Powder, [facility]/pharmacy #[id number], Duplicate rx-Original rx sent 08/25/19. Remaining refills sent., 1 puffs Inhalation Every 4 hours,PRN:as... Start Date: 05/31/20 Status: Ordered aspirin 81 mg oral delayed release tablet See Instructions, 2 tablet By Mouth Daily at bedtime, # 60 tablet, Refills 8, Tot. Refills 8, Maintenance, 02/07/21 10:30:00 EDT, Instructions Replace Required Details, Route to Pharmacy Electronically, [facility]/pharmacy #[id number], Partial fill upon patient re... Start Date: 02/07/21 Status: Ordered Ensure Pluse Ensure Pluse, See Instructions, # 90 each, Refills 1, Tot. Refills 1, Maintenance, Three per day., 12/31/17 11:43:35 EDT, weight loss, Compound Start Date: 12/31/17 Status: Ordered Multivitamins with Folic Acid 1 mg oral tablet 1 tablet, By Mouth, Daily, # 90 tablet, 2 Refills, Maintenance, 01/02/21 11:05:00 EDT, [facility]/pharmacy#[id number], Partial fill upon patient request if the [...] Acute 04/12/21 13:32:00 EST, 01/10/21 13:32:00 EDT, [facility]/pharmacy #[id number], Partial fill... Start Date: 01/10/21 Stop [...]
--- OUTSIDE RECORDS SUMMARY | 2022-12-19 20:55 | XMS_ITS | Continuity of Care Document ---
Author Name Unknown Organization [facility] Address [address] [place] [id number]- Care Team Providers Care Supersonic Engineer Name Role Phone Passer Deepika ORELLANA Primary Care Physician Encounter [facility] [place] Date(s): 02/07/22 - 03/15/[address] [address]- Attending Physician: Brittney Wang NP Admitting Physician: Brittney Wang NP Referring Physician: Brittney Wang NP Allergies, Adverse Reactions, Alerts No Known Allergies Immunizations Given and Recorded Vaccine Date Status Refusal Reason tetanus/diphtheria/pertussis, acel(Tdap) 05/23/21 Given tetanus/diphtheria/pertussis, acel(Tdap) 12/28/14 Given Medications acetaminophen 325 mg oral tablet 650 mg, By Mouth, Every 4 hours, PRN, (1-3), may give 325mg per patient preference and re-dose [id number] within 4 hours, if needed. Patient should [...] # 60 tablet, 0 Refills, [id number], 145, cm, 08/11/21 8:46:00 EDT, Height, 69.5, [...] 0 Refills, Maintenance, 08/11/21 5:13:00 EDT, Tablet, [facility]/pharmacy #[id number], Partial fill upon patient request if the prescription is for a schedule II opioid drug., 145, cm, 08/10/21 1... Start Date: 08/11/21 Status: Ordered Multivitamins with Folic Acid 1 mg oral tablet 1 tablet, By Mouth, Daily, # 90 tablet, 2 Refills, Maintenance, 01/02/21 11:05:00 EDT, [facility]/pharmacy#[id number], Partial fill upon patient request if the prescription is for a schedule II opioid drug., 1 tablet By Mouth Daily, 145, cm, 01/02/21 10:26:00 EDT... Start Date: 01/02/21 Status: Ordered ProAir HFA 90 mcg/inh inhalation aerosol with adapter 1-2 PUFFS, Inhalation, Every 6 hours, PRN, # 8.5 each, Refills 0, Route to Pharmacy Electronically,[id number], [id number], 145, cm, 05/26/21 11:48:00 EST, Height Start Date: 06/19/21 Status: Ordered Unisom 25 mg oral tablet See Instructions, take 1 tablet by mouth at bedtime, # 30 tablet, 1 Refills, Maintenance, 04/19/21 12:03:00 EST, [facility]/pharmacy #[id number], Partial fill upon patient request [...] Professional Member Role: PCP Address: Address: [address] [place] [address]- Care Team Related Persons Name: DENISE TINAJERO Address: [address] [place] [address] Name: JIM LEE Address: [id number] Address: [address] [place] [address] [place] Name: JIM LEE Address: [address] [place] [address]
--- OUTSIDE RECORDS SUMMARY | 2022-12-19 20:55 | XMS_ITS | Continuity of Care Document ---
Author Name Unknown Organization [facility] Address [address] [place] [id number]- Care Team Providers Care Underground Heavy Equipment Operator Name Role Phone Passer Deepika ORELLANA Primary Care Physician Encounter [facility] [place] [facility] [place] Date(s): 11/28/20 - 12/28/[address] [id number] Allergies, Adverse Reactions, Alerts Substance Reaction Severity Status NKA Active Immunizations Given and Recorded Vaccine Date Status Refusal Reason tetanus/diphtheria/pertussis, acel(Tdap) 12/28/14 Given Medications albuterol 90 mcg/inh inhalation powder 1 puffs, Inhalation, Every 4 hours, PRN as needed, for asthma, # 1 each, 2 Refills, Maintenance, 05/31/20 11:25:00 EST, Powder, [facility]/pharmacy #[id number], Duplicate rx-Original rx sent [...] 11 Refills, Maintenance, 04/11/20 13:34:00 EST, Tablet, [facility]/pharmacy #[id number], 146.7, cm, 04/11/20 12:42:00 [...]
[2022-12-19 22:00] VITALS: RESP 18
--- NOTE | 2022-12-19 22:03 | PC.NURSE ---
pt a&o, no respiratory distress, no chest pain, Reviewed discharge instruction with pt, pt verbalized understanding.
--- NOTE | 2022-12-19 22:03 | PC.NURSE ---
Notified PARVEEN Barber pt was discharge.
== END 2022-12-19 22:04 | disposition home or self-care (01) ==
PROVIDERS: Physician Assistant Medical; Emergency Provider Emergency Medicine
DX: J45.901 Unspecified asthma with (acute) exacerbation (principal); Z20.828 Contact with and (suspected) exposure to other viral communicable diseases; Z20.822 Contact with and (suspected) exposure to COVID-19
CPT/HCPCS: 0241U; 71046; 99283; 99284